=== PATIENT | female | born 1990 | race Caucasian/White ===

== ENCOUNTER 2023-09-14 19:50 | Outpatient (REF) | payer BC, SELFPAY | END 2023-09-14 19:51 | disposition home or self-care (01) | LOC: LAB 19:50 | PROVIDERS: Visit Provider Physician Assistant | DX: Z01.419 Encounter for gynecological examination (general) (routine) without abnormal findings (principal) | CPT/HCPCS: 87624; G0145 ==

== ENCOUNTER 2023-10-29 15:14 | Outpatient (REF) | payer BC, SELFPAY ==
--- OUTSIDE RECORDS SUMMARY | 2023-11-02 15:23 | XMS_ITS | CCD ---
Author Organization [facility] Care Team Providers Care Winchman/Crane Operator Name Role Phone Unavailable Primary Care Provider Unavailabl e CHEPE, DR HAWKINS Primary Care Unavailable GEOVANNI, DR EH White Attending Unavailable WEST, DR EH White Admitting Unavailable WEST, DR EH White Consulting Unavailable WEST, DR EH White Attending Unavailable MISC, DR HAWKINS Primary Care Unavailable WEST, DR EH White Admitting Unavailable WEST, DR EH White Consulting Unavailable FIDELIA HOBSON Consulting Unavailable FIDELIA HOBSON Attending Unavailable CHEPE, DR HAWKINS Primary Care Unavailable FIDELIA HOBSON Admitting Unavailable ARIELLE COOPER Attending Unavailable MILI HERNANDZE Attending Unavailable MILI HERNANDEZ Attending Unavailable MILI HERNANDEZ Attending Unavailable NEAL Ramon Primary Care Provider Fidelia Hobson Attending Provider WILMER WAY Attending Unavailable RIO MEI Attending Unavailable WILMER WAY Attending Unavailable WILMER WAY Attending Unavailable FIDELIA HOBSON Attending Unavailable Fidelia Hobson Admitting Unavailable Fidelia Hobson Attending Unavailable Bella Ramon Primary Care Unavailable Allergies Allergy Classification Reported Allergen(s) Allergy Type Date of Onset Reaction(s) Facility penicillAMINE (1 source) penicillAMINE Drug Allergy 10-23-2020 [facility] Penicillins (antibiotic) (1 source) Amoxicillin Drug Allergy 10-23-2020 [facility] (6 sources) Penicillins; Translations: [PENICILLINS] Drug Allergy 07-31-2022 [facility] (5 sources) Amoxicillin; Translations: [AMOXICILLIN] Drug Allergy 08-04-2022 [facility] (1 source) Amoxicillin Drug Allergy 10-23-2020 [facility] (1 source) penicillAMINE Drug Allergy 10-23-2020 [facility] Medications Current Medications Medication Drug Class(es) Dates Sig (Normalized) Sig (Original) acetaminophen 325 mg / oxyCODONE hydrochloride 5 mg oral tablet (1 source) Opioid Agonist Start: 07-31-2022 End: 08-03-2022 take 1 tablet by mouth every six hours as needed for pain oxyCODONE-acetamin ophen (PERCOCET) 5-325 mg tablet Indications: Closed nondisplaced fracture of fifth metatarsal bone of left foot, initial encounter Take 1 tablet by mouth every 6 hours as needed for pain for up to 3 days. 12 tablet 0 07/31/2022 08/03/2022 Active Comment on above: Take 1 tablet by andrew th every 6 hours as needed for pain for up to 3 days. Completed/Discontinued Medications Medication Drug Class(es) Dates Sig (Normalized) Sig (Original) Ethinyl Estradiol / Ferrous fumarate / Norethindrone (4 sources) Estrogen Start: 07-21-2022 take 1 tablet by mouth once daily LO LOESTRIN FE 1 mg-10 mcg (24)/10 mcg (2) TAKE 1 TABLET BY MOUTH EVERY DAY FOR 28 DAYS 0 07/21/2022 Active Comment on above: TAKE 1 TABLET BY ANDREW TH EVERY DAY FOR 28 DAYS Problems Problem Classification Problem Date Documented Date Episodic/Chronic Fracture of lower limb (5 sources) Closed fracture of fifth metatarsal bone; Translations: [Nondisplaced fracture of fifth metatarsal bone, left foot, initial encounter for closed fracture] Onset: 07-31-2022 Episodic Immunizations and screening for infectious disease (1 source) Encounter for screening for human papillomavirus (HPV); Translations: [ENC SCREENING HUMAN PAPILLOMAVIRUS] Onset: 07-07-2022 Episodic Other screening for suspected conditions (not mental disorders or infectious disease) (4 sources) Encounter for screening for malignant neoplasm of cervix; Translations: [ENC SCREENING MALIG NEOPLASM CERV] Onset: 07-03-2022 Episodic Results Test Name Value Interpretation Reference Range Facility [facility] 10-27-2022 CNOV Office Visit (AGHWG1 ) JAYASHREECELE ([id number]) 1990 F [place] Date Time Provider Department 10/27/22 11:15 AM MILI HERNANDEZ [id number] During your visit today, we recorded the following information about you: Respiration Weight Height 18/minute 74.8 kg 1.651 m Mili Hernandez DPM 11/25/2022 4:23 PM Signed PODIATRY OFFICE NOTE Chief Complaint: Left foot 5th metatarsal fracture HPI: This 32 year old female with PMH indicated below presents for follow up of left 5th metatarsal fracture. DOI: 07/31/22. Since last visit, she has been weightbearing as tolerated in a regular shoes. States she has transitioned out of the lace up and has been performing more activity. States she is doing well and states has some very minimal pain. Denies nausea, vomiting, fever, chills, shortness of breath, calf pain, or chest pain. Denies any other pedal complaints at this time. PCP: No primary care provider on file.: History reviewed. No pertinent past medical history.: Current Outpatient Medications Medication Sig LO LOESTRIN FE 1 mg-10 mcg (24)/10 mcg (2) TAKE 1 TABLET BY MOUTH EVERY DAY FOR 28 DAYS No current facility-administered medications for this visit. : ALLERGIES Allergen Reactions Amoxicillin Rash Penicillins Rash : PAST SURGICAL HISTORY Procedure Laterality Date TONSILLECTOMY AND ADENOIDECTOMY History reviewed. No pertinent family history.: Social History Tobacco Use Smoking status: Never Smokeless tobacco: Never Substance Use Topics Alcohol use: Yes Comment: social Drug use: Never Physical Exam: Patient is alert and oriented x 3 in NAD. Patient is a 32 year old female who appears well developed, well nourished and with good attention to hygiene and body habitus. Resp 18 Ht 165.1 cm (5' 5 ) Wt 74.8 kg (165 lb) BMI 27.46 kg/m? Vascular: DP and PT pulses are palpable. CFT less than 3 seconds to all digits bilateral. Skin temperature is warm to warm from proximal to distal bilateral. Hair growth is noted. Minimal edema noted to the left lateral midfoot. No varicosities noted. Neuro: Light touch intact bilateral. Derm: Skin texture and turgor within normal limits. Toenails normal in appearance. Webspaces 1-4 clean, dry, intact b/l. No rashes, subcutaneous nodules, or open lesions noted. No hyperkeratotic tissue. No ecchymosis or erythema. Musculoskeletal/Orthop aedic: General foot morphology: Rectus medial longitudinal arch +5/5 muscle strength Dorsiflexion, Plantarflexion, Inversion, Eversion bilateral. Pain with active eversion on the left. Ankle joint ROM is full B/L. Minimal tenderness to the 5th metatarsal base. No tenderness to the ankle joint. No tenderness along the peroneal tendons. No tenderness to the tarsometatarsal joint complex. No tenderness to the 5th toe. No tenderness to the ATFL. Radiographs: 3 views of the left foot were taken and reviewed today. Impression: Avulsion fracture to the fifth metatarsal styloid. No change in position. Increased callus formation. ASSESSMENT: This 32 year old female patient presents today with left 5th metatarsal non-displaced avulsion fracture. Progressing well with conservative care. Plan: A problem focused history and physical examination were preformed. The patient was educated on clinical and radiographic findings, diagnosis and treatment plans. Patient state that she understands all that has been explained and all questions were answered to her apparent satisfaction. - Shoe gear and activities to tolerance. - Educated on signs and symptoms to watch for and instructed to call if any should arise. Follow up as needed Nestor Vega DPM, PGY-3 I personally saw and examined the patient. I reviewed the resident's note. I agree with the resident's assessment and plan unless otherwise noted. Mili Hernandez DPM Allergies As of Date: 10/27/2022 Noted Allergy Reaction AMOXICILLIN 08/04/2022 2 - Rash PENICILLINS 07/31/2022 2 - Rash Date Reviewed: 10/27/2022 Reviewed by: Mili Hernandez DPM - Fully Assessed Reason for Visit: Follow Up [171] Fracture [4131] Primary Visit Diagnosis:Closed nondisplaced fracture of fifth metatarsal bone of left foot with routine healing, subsequent encounter [S92.355D] Order(s):XR FOOT GENERAL 3V AP/LAT/OBL LEFT [[id number]] Order #: [id number] Prescriptions as of 11/25/2022 - LO LOESTRIN FE 1 mg-10 mcg (24)/10 mcg (2) TAKE 1 TABLET BY MOUTH EVERY DAY FOR 28 DAYS Problem List As Of Date: 10/27/2022 (None) Disposition: Return if symptoms worsen or fail to improve. Follow-up and Disposition History for Encounter Date Provider Department Center 10/27/2022 [id number] HERNANDEZ AGHWG1 [facility] Encounter Status:Closed by MILI HERNANDEZ on 11/25/22 [facility] CNOVon 09-10-2022 CNOV Office Visit (AGPOB1 ) CELE BLANC ([id number]) 1990 F [place] Date Time Provider Department 09/10/22 8:15 AM MILI HERNANDEZ [id number] During your visit today, we recorded the following information about you: Respiration Weight Height 16/minute 74.8 kg 1.651 m Bernardino Huang 09/10/2022 8:49 AM Signed REVIEW OF SYSTEMS: GENERAL: Well developed, well nourished. No acute distress PAIN: Negative for pain, history of chronic pain or current treatment for chronic pain conditions CARDIOVASCULAR: Negative for chest pain, leg swelling and palpations. MSK: Negative for joint swelling SKIN: Negative for lesions, rash, itching, metal sensitivity NEURO: Negative for seizure, trauma, numbness/tingling of extremities. ENDOCRINE: Negative for diabetic associated symptoms HEMATOLOGY: Negative for excessive bleeding, clots, bleeding disorders. Mili Hernandez DPM 09/10/2022 8:49 AM Signed PODIATRY OFFICE NOTE Chief Complaint: Left foot 5th metatarsal fracture HPI: This 32 year old female with PMH indicated below presents for follow up of left 5th metatarsal fracture. DOI: 07/31/22. Since last visit, she has been weightbearing as tolerated in a boot. Admit to walking out of the boot at home. States she is doing well and denies pain when in the boot. Denies nausea, vomiting, fever, chills, shortness of breath, calf pain, or chest pain. Denies any other pedal complaints at this time. PCP: No primary care provider on file.: History reviewed. No pertinent past medical history.: Current Outpatient Medications Medication Sig LO LOESTRIN FE 1 mg-10 mcg (24)/10 mcg (2) TAKE 1 TABLET BY MOUTH EVERY DAY FOR 28 DAYS No current facility-administered medications for this visit. : ALLERGIES Allergen Reactions Amoxicillin Rash Penicillins Rash : PAST SURGICAL HISTORY Procedure Laterality Date TONSILLECTOMY AND ADENOIDECTOMY History reviewed. No pertinent family history.: Social History Tobacco Use Smoking status: Never Smokeless tobacco: Never Substance Use Topics Alcohol use: Yes Comment: social Drug use: Never Physical Exam: Patient is alert and oriented x 3 in NAD. Patient is a 32 year old female who appears well developed, well nourished and with good attention to hygiene and body habitus. Resp 16 Ht 165.1 cm (5' 5 ) Wt 74.8 kg (165 lb) BMI 27.46 kg/m? Vascular: DP and PT pulses are palpable. CFT less than 3 seconds to all digits bilateral. Skin temperature is warm to warm from proximal to distal bilateral. Hair growth is noted. Mild edema noted to the left llateral midfoot. No varicosities noted. Neuro: Light touch intact bilateral. Derm: Skin texture and turgor within normal limits. Toenails normal in appearance. Webspaces 1-4 clean, dry, intact b/l. No rashes, subcutaneous nodules, or open lesions noted. No hyperkeratotic tissue. Ecchymosis resolved. Musculoskeletal/Orthop aedic: General foot morphology: Rectus medial longitudinal arch +5/5 muscle strength Dorsiflexion, Plantarflexion, Inversion, Eversion bilateral. Pain with active eversion on the left. Ankle joint ROM is full B/L. Focal tenderness to the 5th metatarsal base. No tenderness to the ankle joint. No tenderness along the peroneal tendons. No tenderness to the tarsometatarsal joint complex. No tenderness to the 5th toe. No tenderness to the ATFL. Radiographs: 3 views of the left foot were taken and reviewed today. Impression: Avulsion fracture to the fifth metatarsal styloid. No change in position. Interval callus formation. ASSESSMENT: This 32 year old female patient presents today with left 5th metatarsal non-displaced avulsion fracture. Progressing well with conservative care. Plan: A problem focused history and physical examination were preformed. The patient was educated on clinical and radiographic findings, diagnosis and treatment plans. Patient state that she understands all that has been explained and all questions were answered to her apparent satisfaction. - Can transition out of the boot into a lace up ankle brace and supportive tennis shoes. - Lace up ankle brace fit and dispensed today. - Begin home therapy. Instructions and theraband dispensed. - Educated on signs and symptoms to watch for and instructed to call if any should arise. Follow up in 6 weeks with repeat x-rays. Mili Hernandez DPM Allergies As of Date: 09/10/2022 Noted Allergy Reaction AMOXICILLIN 08/04/2022 2 - Rash PENICILLINS 07/31/2022 2 - Rash Date Reviewed: 09/10/2022 Reviewed by: Mili Hernandez DPM - Fully Assessed Reason for Visit: Follow Up [171] Primary Visit Diagnosis:Closed nondisplaced fracture of fifth metatarsal bone of left foot, initial encounter [S92.355A] Order(s):XR FOOT GENERAL 3V AP/LAT/OBL LEFT [[id number]] Order #: [id number] Prescriptions as of 09/10/2022 - LO LOESTRIN FE 1 mg-10 mcg (more content not included)... Normal [facility] 09-08-2022 [facility] Telephone (AGPOB1) CELE BLANC ([id number]) 1990 F [place] Date Time Provider Department 09/08/22 MILI HERNANDEZ During your visit today, we recorded the following information about you: Tangela Carter [address] [facility] 09/08/2022 12:38 PM Signed ----- Message from Bel Daly sent at 09/08/2022 8:17 AM EDT ----- Regarding: Orthopedics/Figas/Left Foot Fracture appt Subject Line Format: Orthopedics / [Provider Name or Open AND Body Part ] / [Issue] Patient has been identified by name and Date of (Y/N): Y Patient: Cele Blanc Date of : 1990 Previous Provider Seen: [place] Body Part(s) Identified: Left Foot Diagnosis/Reason For Visit: Fracture Reason for the call/escalation: Pt wants to know if her appt can be moved to this week since she is off. Please call. If reason for call/escalation is discharge from ED/ER or Hospital, which facility was the patient seen at: na Was an appointment scheduled (Y/N): na Person calling if other than patient: pt Return call to if other than patient: pt Best contact number: [phone] Thank you, Bel Daly September 08, 2022 8:17 AM Tangela Deutsch 09/08/2022 12:38 PM Signed Spoke with patient and appointment was made Tangela Deutsch Allergies As of Date: 09/08/2022 Noted Allergy Reaction AMOXICILLIN 08/04/2022 2 - Rash PENICILLINS 07/31/2022 2 - Rash Date Reviewed: 08/04/2022 Reviewed by: Mili Hernandez DPM - Fully Assessed Reason for Visit: Appointment [186] Prescriptions as of 09/08/2022 - LO LOESTRIN FE 1 mg-10 mcg (24)/10 mcg (2) TAKE 1 TABLET BY MOUTH EVERY DAY FOR 28 DAYS Problem List As Of Date: 09/08/2022 (None) Encounter Status:Closed by TANGELA HULL on 09/08/22 [facility] CNOVon 08-04-2022 CNOV Office Visit (AGHWG1 ) CELE BLANC ([id number]) 1990 F [place] Date Time Provider Department 08/04/22 3:00 PM MILI HERNANDEZ [id number] During your visit today, we recorded the following information about you: Respiration Weight Height 18/minute 74.8 kg 1.664 m Arelis Luna MA 08/04/2022 5:46 PM Signed REVIEW OF SYSTEMS: GENERAL: Well developed, well nourished. No acute distress PAIN: Pain 7/10 CARDIOVASCULAR: Negative for chest pain, leg swelling and palpations. MSK: Negative for joint swelling SKIN: Negative for lesions, rash, itching, metal sensitivity NEURO: Negative for seizure, trauma, numbness/tingling of extremities. ENDOCRINE: Negative for diabetic associated symptoms HEMATOLOGY: Negative for excessive bleeding, clots, bleeding disorders. PAPO Ruiz DPM 08/04/2022 5:46 PM Signed PODIATRY OFFICE NOTE Chief Complaint: Left foot 5th metatarsal fracture HPI: This 32 year old female with PMH indicated below presents complaining of left 5th metatarsal fracture. Patient states that last she fell and injured her left foot. Presented to the ED where radiographs were taken which showed evidence of a non-displaced avulsion fracture of the left 5th metatarsal. She was given a CAM boot and states that she has remained minimally weight bearing to the left foot since the injury with crutches. Denies any pain at this time with rest but does have some discomfort with direct pressure. Denies any constitutional symptoms. Denies any additional pedal complaints. PCP: No primary care provider on file.: History reviewed. No pertinent past medical history.: Current Outpatient Medications Medication Sig LO LOESTRIN FE 1 mg-10 mcg (24)/10 mcg (2) TAKE 1 TABLET BY MOUTH EVERY DAY FOR 28 DAYS No current facility-administered medications for this visit. : ALLERGIES Allergen Reactions Amoxicillin Rash Penicillins Rash : PAST SURGICAL HISTORY Procedure Laterality Date TONSILLECTOMY AND ADENOIDECTOMY History reviewed. No pertinent family history.: Social History Tobacco Use Smoking status: Never Smokeless tobacco: Never Substance Use Topics Alcohol use: Yes Comment: social Drug use: Never Physical Exam: Patient is alert and oriented x 3 in NAD. Patient is a 32 year old female who appears well developed, well nourished and with good attention to hygiene and body habitus. Resp 18 Ht 166.4 cm (5' 5.5 ) Wt 74.8 kg (165 lb) BMI 27.04 kg/m? Vascular: DP and PT pulses are palpable. CFT less than 3 seconds to all digits bilateral. Skin temperature is warm to warm from proximal to distal bilateral. Hair growth is noted. Edema noted to the left foot. No varicosities noted. Neuro: Light touch intact bilateral. Derm: Skin texture and turgor within normal limits. Toenails normal in appearance. Webspaces 1-4 clean, dry, intact b/l. No rashes, subcutaneous nodules, or open lesions noted. No hyperkeratotic tissue. Ecchymosis overlying the dorsolateral midfoot. Musculoskeletal/Orthop aedic: General foot morphology: Rectus medial longitudinal arch +5/5 muscle strength Dorsiflexion, Plantarflexion, Inversion, Eversion bilateral Ankle joint ROM is full B/L. Focal tenderness to the 5th metatarsal base. No tenderness to the ankle joint. No tenderness along the peroneal tendons. No tenderness to the tarsometatarsal joint complex. No tenderness to the 5th toe. No tenderness to the ATFL. ASSESSMENT: This 32 year old female patient presents today with left 5th metatarsal non-displaced avulsion fracture Plan: A comprehensive history and physical examination were preformed. The patient was educated on clinical and radiographic findings, diagnosis and treatment plans. Patient state that she understands all that has been explained and all questions were answered to her apparent satisfaction. Etiology and treatment options were discussed with the patient. - Continue with the CAM boot. Patient okay to WBAT in the boot. - Remove the boot at rest to perform ankle ROM exercises - Advised patient on the risk of developing blood clots while immobilized. Patient advised to call immediately or go to the ED if she is to develop worsening calf pain, chest pain or SOB while in the boot. - Educated on signs and symptoms to watch for and instructed to call if any should arise. Follow up in 4-6 weeks with repeat x-rays. William Galvin DPM PGY3 I personally saw and examined the patient. I reviewed the resident's note. I agree with the resident's assessment and plan unless otherwise noted. Mili Hernandez DPM Allergies As of Date: 08/04/2022 Noted Allergy Reaction AMOXICILLIN 08/04/2022 2 - Rash PENICILLINS 07/31/2022 2 - Rash Date Reviewed: 08/04/2022 Reviewed by: Mili Hernandez DPM - Fully Assessed Reason for Visit: New [[id number]] Primary Visit Diagnosis (more content not included)... [facility] ALLIED HEALTHon 07-31-2022 ALLIED HEALTH HNO ID: [id number] Author: RT Bee(R) Service: Radiology Author Type: Technologist Type: Allied Health Filed: 07/31/2022 8:43 AM Note Text: Radiology Service Progress Note PATIENT NAME: Cele Blanc DATE OF SERVICE: July 31, 2022 TIME: 8:37 AM PATIENT IDENTITY VERIFICATION COMPLETED USING TWO (2) IDENTIFIERS: Name and Date of confirmed by patient verbally and Name and Date of confirmed by identification band. FALL SCREENING: Has the patient had 2 falls in the last year or 1 fall with injury or currently using an Ambulatory Assistive Device (Walker, Cane, Wheelchair, Crutches, etc.)? Emergency Room Patient: Screened in ED PATIENT GENDER DATA: Female. status: : No status: NO. PATIENT RELEVANT IMPLANT DATA REVIEWED: Not Applicable RADIOLOGY DEPARTMENT: General X-ray: Exam(s) Completed: Lower Extremity X-Ray(s): Ankle, Left and Foot, Left PERIPHERAL IV DATA: Not applicable SIGNED BY: RT Bee(R) July 31, 2022 8:37 AM [facility] CNPNon 07-31-2022 CNPN Telephone (AGPOB1) CELE BLANC ([id number]) 1990 F [place] Date Time Provider Department 07/31/22 [facility] AGPOB1 During your visit today, we recorded the following information about you: Wendy Phillip 07/31/2022 1:11 PM Signed ----- Message from Bel Daly sent at 07/31/2022 10:24 AM EDT ----- Regarding: Orthopedics / Open Foot: Fracture Broken / Recent ED Visit Subject Line Format: Orthopedics / [Provider Name or Open AND Body Part ] / [Issue] Patient has been identified by name and Date of (Y/N): Y Patient: Cele Blanc Date of : 1990 Previous Provider Seen: NA Body Part(s) Identified: Left Foot Diagnosis/Reason For Visit: Fracture Reason for the call/escalation: ER F/U If reason for call/escalation is discharge from ED/ER or Hospital, which facility was the patient seen at: [facility] Was an appointment scheduled (Y/N): n Person calling if other than patient: pt Return call to if other than patient: pt Best contact number: [phone] Thank you, Bel Addy July 31, 2022 10:24 AM Wendy Phillip 07/31/2022 1:49 PM Signed Vinicio Awad MD You 12 minutes ago (1:34 PM) Foot and ankle follow-up with Dr. Norwood/Dr. Hernandez/Dr. Jose Thanks, NJD You Vinicio Awad MD 34 minutes ago (1:12 PM) CR This patient was seen in the ED today. You are campus receptionist. Would you like to see this patient? Nu Corrigan Please schedule with one of your providers. Thanks, Nu Carter Rosalie [facility] 08/01/2022 9:02 AM Signed Mili Hernandez DPM You 12 minutes ago (8:48 AM) Anytime next week or the following is fine You Mili Hernandez DPM 18 hours ago (2:37 PM) NM How soon should this be seen Wendy Phillip You 19 hours ago (1:49 PM) CR Please schedule with one of your providers. Thanks, Nu Carter [address] [facility] 08/01/2022 9:02 AM Signed Called and left message for patient to call the office back to schedule an appointment Tangela Carter [address] [facility] Allergies As of Date: 07/31/2022 Noted Allergy Reaction PENICILLINS 07/31/2022 2 - Rash Date Reviewed: 07/31/2022 Reviewed by: Tisha Lala RN - Fully Assessed Reason for Visit: Appointment [186] Prescriptions as of 08/01/2022 - oxyCODONE-acetaminophe n (PERCOCET) 5-325 mg tablet Take 1 tablet by mouth every 6 hours as needed for pain for up to 3 days. Problem List As Of Date: 07/31/2022 (None) Encounter Status:Closed by WENDY PHILLIP on 07/31/22 [facility] ED PROV NOTEon 07-31-2022 ED PROV NOTE HNO ID: [id number] Author: Arielle Cooper DO Service: Emergency Medicine Author Type: Physician Type: ED Provider Notes Filed: 08/27/2022 2:14 AM Note Text: ED Provider Note Patient Name: Cele Blanc : 1990 SERVICE DATE: 07/31/22 History Patient presents with: Ankle Injury: Pt c/o L ankle pain after she fell walking down 2 steps this morning due to steps gave away. + swelling and tenderness on palpation noted. 32-year-old female presenting with left ankle injury. States she was coming down the steps into her garage this morning. The steps gave way underneath her. She sustained an injury to her left foot and ankle. She did not strike her head or lose consciousness. No pain in the hip or knee. She has difficulty bearing weight or ambulating. She is able to range it some. No other injuries. No past medical history on file. No past surgical history on file. No family history on file. Social History Tobacco Use Smoking status: Not on file Smokeless tobacco: Not on file Substance and Sexual Activity Alcohol use: Not on file Drug use: Not on file Sexual activity: Not on file ALLERGIES Allergen Reactions Penicillins Rash Review of Systems Constitutional: Negative for chills, diaphoresis and fever. HENT: Negative. Negative for congestion, ear pain and nosebleeds. Eyes: Negative for photophobia, discharge and visual disturbance. Respiratory: Negative for cough, chest tightness and shortness of breath. Cardiovascular: Negative for chest pain and leg swelling. Gastrointestinal: Negative for abdominal pain, blood in stool, diarrhea, nausea and vomiting. Endocrine: Negative. Negative for cold intolerance and heat intolerance. Genitourinary: Negative for dysuria, flank pain, frequency and hematuria. Musculoskeletal: Negative for arthralgias. Left foot and ankle pain Skin: Negative for color change and rash. Neurological: Negative for dizziness, seizures, facial asymmetry, speech difficulty, weakness, numbness and headaches. Psychiatric/Behavioral : Negative. Negative for agitation, confusion, hallucinations and suicidal ideas. Physical Exam Vitals [07/31/22 0721] BP Pulse Temp Temp src Resp SpO2 Weight Height 118/63 (!) 92 37 ?C (98.6 ?F) -- 16 98 % 74.8 kg (165 lb) -- Physical Exam Constitutional: General: She is not in acute distress. Appearance: Normal appearance. She is well-developed and normal weight. She is not ill-appearing, toxic-appearing or diaphoretic. HENT: Head: Normocephalic and atraumatic. Mouth/Throat: Mouth: Mucous membranes are moist. Pharynx: Oropharynx is clear. Eyes: Extraocular Movements: Extraocular movements intact. Conjunctiva/sclera: Conjunctivae normal. Pupils: Pupils are equal, round, and reactive to light. Abdominal: General: Bowel sounds are normal. There is no distension. Palpations: Abdomen is soft. Tenderness: There is no abdominal tenderness. There is no guarding or rebound. Musculoskeletal: General: Tenderness (left lateral foot and lateral malleolus. no gross deformity) and signs of injury present. No swelling or deformity. Normal range of motion. Cervical back: Normal range of motion and neck supple. Right lower leg: No edema. Left lower leg: No edema. Lymphadenopathy: Cervical: No cervical adenopathy. Skin: General: Skin is warm and dry. Capillary Refill: Capillary refill takes less than 2 seconds. Coloration: Skin is not jaundiced or pale. Findings: No bruising, erythema or rash. Neurological: General: No focal deficit present. Mental Status: She is alert and oriented to person, place, and time. Mental status is at baseline. Cranial Nerves: No cranial nerve deficit. Sensory: No sensory deficit. Motor: No weakness. Coordination: Coordination normal. Gait: Gait normal. Deep Tendon Reflexes: Reflexes are normal and symmetric. Reflexes normal. Psychiatric: Behavior: Behavior normal. Diagnostic Testing ED Labs Ordered and Reviewed - No data to display Procedures ED Course / Clinical Impression Clinical Impressions as of 08/27/22 0212 Closed nondisplaced fracture of fifth metatarsal bone of left foot, initial encounter Patient seen and evaluated. Differential including fracture contusion dislocation all considered. X-ray shows nondisplaced fracture of the fifth metatarsal. Patient will be placed in a walking boot. Follow-up orthopedics. Return if needed for any worsening symptoms. MDM / Disposition / Plan MDM The patient was DISCHARGED: Counseled patient regarding radiology results AND suspected diagnosis AND need for follow-up. Discharged home with verbal and written instructions. They were instructed to return as needed for persistent or worsening symptoms or any new concerns. Condition at time of disposition: stable SIGNATURE: DO ISHMAEL Kulkarni JUSTIN J 08/27/22 0214 Normal [facility] XR ANKLE 3V AP/LAT/OBL LTon 07-31-2022 XR ANKLE 3V AP/LAT/OBL LT * * *Final Report* * * DATE OF EXAM: Jul 31 2022 8:44AM [id number] - XR ANKLE 3V AP/LAT/OBL LT / PROCEDURE REASON: Ankle pain, no prior imaging * * * * Physician Interpretation * * * * EXAM TITLE: XR ANKLE 3V AP/LAT/OBL LT, XR FOOT 3V AP/LAT/OBL LT DATE: 07/31/2022 8:51 AM INDICATION: Left foot and left ankle pain secondary to a fall COMPARISON: None. FINDINGS: Nondisplaced transverse fracture at the base of the fifth metatarsal. No additional fracture or dislocation. Accessory ossicle is noted dorsal to the subtalar joint. No acute soft tissue abnormality. IMPRESSION: Fifth metatarsal fracture. Seismograph Observer: PSCB Transcribe Date/Time: Jul 31 2022 8:51A Dictated by : KOMAL CUELLAR MD This examination was interpreted and the report reviewed and electronically signed by: KOMAL CUELLAR MD on Jul 31 2022 8:54AM EST [id number] Normal [facility] XR FOOT 3V AP/LAT/OBL LTon 0 07-31-2022 XR FOOT 3V AP/LAT/OBL LT * * *Final Report* * * DATE OF EXAM: Jul 31 2022 8:44AM [id number] - XR FOOT 3V AP/LAT/OBL LT / PROCEDURE REASON: Foot trauma, no prior imaging (Age >= 6y) * * * * Physician Interpretation * * * * EXAM TITLE: XR ANKLE 3V AP/LAT/OBL LT, XR FOOT 3V AP/LAT/OBL LT DATE: 07/31/2022 8:51 AM INDICATION: Left foot and left ankle pain secondary to a fall COMPARISON: None. FINDINGS: Nondisplaced transverse fracture at the base of the fifth metatarsal. No additional fracture or dislocation. Accessory ossicle is noted dorsal to the subtalar joint. No acute soft tissue abnormality. IMPRESSION: Fifth metatarsal fracture. Seismograph Observer: PSCB Transcribe Date/Time: Jul 31 2022 8:51A Dictated by : KOMAL CUELLAR MD This examination was interpreted and the report reviewed and electronically signed by: KOMAL CUELLAR MD on Jul 31 2022 8:54AM EST [id number] Normal [facility] PAP ACOG PANEL 2: 30 to 65on 07-11-2022 . . Normal [facility] Comment on above: Result Comment: Perf ormed at: WB Performed By: #### [id number] #### [facility] [address] [address] [address] Morenita Hood Age Gdln ACOG Testing 30-65 Normal [facility] Comment on above: Performed By: #### [id number] #### [facility] [address] [address] [address] Morenita Hood DIAGNOSIS: Comment Abnormal [facility] Comment on above: Result Comment: EPIT HELIAL CELL ABNORMALITY. LOW GRADE SQUAMOUS INTRAEPITHELIAL LESION (LSIL). Performed at: WB Performed By: #### [id number] #### [facility] [address] [address] [address] Morenita Hood Electronically signed by: Comment Normal [facility] Comment on above: Result Comment: Maeve Chavez MD, Pathologist Performed at: WB Performed By: #### [id number] #### [facility] [address] [address] [address] Morenita Hood HPV Aptima Positive Abnormal Negative [facility] Comment on above: Result Comment: This nucleic acid amplification test detects fourteen high-risk HPV types (16,18,31,33,35,39,45,51,52,56,58,59,66,68) without differentiation. Performed at: =G Performed By: #### [id number] #### [facility] [address] [place] [address] Dr. Morenita Hood HPV Genotype Reflex Comment Normal [facility] Comment on above: Result Comment: Crit eria not met, HPV Genotype not performed. Performed at: WB Performed By: #### [id number] #### [facility] [address] [address] [address] Morenita Hood Methodology: Comment Normal [facility] Comment on above: Result Comment: This liquid based ThinPrep(R) pap test was screened with the use of an image guided system. Performed at: WB Performed By: #### [id number] #### [facility] [address] [place] [address] Dr. Morenita Hood Note: Comment Normal [facility] Comment on above: Result Comment: The Pap smear is a screening test designed to aid in the detection of premalignant and malignant conditions of the uterine cervix. It is not a diagnostic procedure and should not be used as the sole means of detecting cervical cancer. Both false-positive and false-negative reports do occur. . Performed at: WB Performed By: #### [id number] #### [facility] [address] [place] [address] Dr. Morenita Hood Pathologist Provided ICD10 Comment Normal [facility] Comment on above: Result Comment: [id number] Performed at: WB Performed By: #### [id number] #### [facility] [address] [place] [address] Dr. Morenita Hood Performed by: Comment Normal [facility] Comment on above: Result Comment: Lorraine Bravo Polisher Sand (ASCP) Performed at: WB Performed By: #### [id number] #### [facility] [address] [place] [address] Dr. Morenita Hood Specimen adequacy: Comment Normal [place] Comment on above: Result Comment: Sati sfactory for evaluation. Endocervical and/or squamous metaplastic cells (endocervical component) are present. Performed at: WB Performed By: #### [id number] #### [facility] [address] [place] [address] Dr. Morenita Hood No Panel Information [facility] Vital Signs Date Time Vital Sign Value Performing Clinician Leno garza 10-27-2022 10:55-0400 Body height 165.1 cm Mili Figas DPM Work Phone: [facility] 10-27-2022 10:55-0400 Body weight 74.84 kg Mili Figas DPM Work Phone: [facility] 10-27-2022 10:55-0400 Respiratory rate 18 /min Mili Figas DPM Work Phone: [facility] 09-10-2022 08:10-0400 Body height 165.1 cm Mili Figas DPM Work Phone: [facility] 09-10-2022 08:10-0400 Body weight 74.84 kg Mili Figas DPM Work Phone: [facility] 09-10-2022 08:10-0400 Respiratory rate 16 /min Mili Figas DPM Work Phone: [facility] 08-04-2022 14:46-0400 Body height 166.4 cm Mili Figas DPM Work Phone: [facility] 08-04-2022 14:46-0400 Body weight 74.84 kg Mlii Figas DPM Work Phone: [facility] 08-04-2022 14:46-0400 Respiratory rate 18 /min Mili Figas DPM Work Phone: [facility] Encounters Encounter Date Encounter Type Care Provider Facility Start: 10-30-2023 End: 10-30-2023 ambulatory NEAL Ramon Work Phone: [facility] Work Phone: Start: 10-30-2023 End: 10-30-2023 Departed Referred NEAL Ramon Work Phone: [facility] Start: 10-29-2023 End: 10-29-2023 ambulatory FIDELIA GANDHIO Not Available Start: 10-07-2023 End: 10-07-2023 ambulatory WILMER R LAUSE Not Available Start: 09-16-2023 End: 09-16-2023 ambulatory WILMER R LAUSE Not Available Start: 09-14-2023 End: 09-14-2023 ambulatory RIO MEI Not Available Start: 08-27-2023 End: 08-27-2023 ambulatory WILMER R LAUSE Not Available Start: 10-27-2022 End: 10-27-2022 ambulatory MILI HERNANDEZ Facility:[facility] Start: 10-27-2022 End: 10-27-2022 Patient encounter procedure Mili Hernandez DPM Work Phone: [employer] Comment on above: Closed nondisplaced fracture of fifth metatarsal bone of left foot with routine healing, subsequent encounter (Primary Dx) Start: 09-10-2022 End: 09-10-2022 ambulatory MILI HERNANDEZ Facility:[facility] Start: 09-10-2022 End: 09-10-2022 Patient encounter procedure Mili Hernandez DPM [facility] Phone: [facility] Comment on above: Closed nondisplaced fracture of fifth metatarsal bone of left foot, initial encounter (Primary Dx) Start: 09-08-2022 Telephone encounter Mili F cain DPM Work Phone: [facility] Comment on above: Appointment Start: 08-04-2022 End: 08-04-2022 ambulatory MILI HERNANDEZ Facility:[facility] Start: 08-04-2022 End: 08-04-2022 Patient encounter procedure Mili Hernandez DPM Work Phone: [employer] Comment on above: Closed nondisplaced fracture of fifth metatarsal bone of left foot, initial encounter (Primary Dx) Start: 07-31-2022 Telephone encounter [facility] Work Phone: [facility] Comment on above: Appointment Start: 07-31-2022 End: 07-31-2022 Emergency department patient visit ARIELLE COOPER Facility:[facility] Start: 07-03-2022 End: 07-03-2022 ambulatory FIDELIA HOBSON Facility:[facility] Start: 07-03-[address] EH Weston y:[facility] Start: 11-26-2021 End: 03-07-[address] DOCTOR MO Facility:[facility] Procedures Date Procedure Procedure Detail Performing Clinician Start: 10-27-2022 Radex foot complete minimum 3 views Mili Figas DPM Work Phone: Start: 09-10-2022 Radex foot complete minimum 3 views Mili Figas DPM Work Phone: Plan of Treatment Date Care Activity Detail Author Start: 01-09-2023 Influenza vaccination [facility] Start: 05-11-2022 DEPRESSION ASSESSMENT DEPRESSION ASS ESSMENT [facility] Start: 01-09-2022 Influenza vaccination INFLUENZA (#1) [facility] Start: 2019 HPV TESTING HPV TESTING [facility] Start: 2010 PAP TESTING PAP TESTING [facility] Start: 2008 Urine microalbumin profile DTAP,TDAP ,TD (1 - Tdap) [facility] Start: 2007 HEPATITIS C SCREENING HEPATITIS C SC SVEN [facility] Start: 2007 HIV SCREENING HIV SCREENING [facility] Start: 1989 COVID-19 VACCINE (#1) COVID-19 VACCI NE (#1) [facility] Start: 1989 HEPATITIS B (1 of 3 - 3-dose series) HEPATITIS B (1 of 3 - 3-dose series) [facility] Payers Date Payer Category Payer Unknown [employer] PPO OOS [id number] 2021-Present [phone] [address] [place] [address] PPO [id number] 1989 Unknown [id number] 1989 Unknown [id number] 1989 Unknown [id number] 1989 Unknown [id number] 1989 Unknown [id number] 1989 Unknown [id number] 1989 Unknown [id number] 1989 Unknown [id number] 1959 Self-pay 1960 Unknown [id number] Unknown [id number] Social History Date Type Detail Facility Tobacco smoking status [facility] Tobacco smoking consumption unknown [facility] Start: 1989 Sex Assigned At Not on file [facility] Start: 10-16-2017 End: 08-04-2022 Tobacco smoking status [facility] Never smoked tobacco [facility] Start: 08-04-2022 Tobacco use and exposure Smokeless tobacco non-user [facility] Start: 08-04-2022 End: 10-27-2022 Alcohol intake Current drinker of alcohol (finding) [facility] Start: 08-04-2022 Alcohol Comment social [facility] Start: 10-27-2022 History of Social function [facility] Start: 10-27-2022 Tobacco use panel [facility] Start: 1989 Sex Assigned At Female F [facility] Clinical Notes 07-31-2022 to 10-27-2022 Mili Hernandez DPM - 10/27/2022 11:14 AM Corrina Hernandez DPM - 09/10/2022 8:29 AM Bernardino Chao - 09/10/2022 8:08 AM Corrina Hernandez DPM - 08/04/2022 3:11 PM EDT Note Date & Type Note Facility 10-27-2022 Note HNO ID: [id number] Author: Mili Hernandez DPM Service: ? Author Type: Physician Type: Progress Notes Filed: 11/25/2022 4:23 PM Note Text: PODIATRY OFFICE NOTE Chief Complaint: Left foot 5th metatarsal fracture HPI: This 32 year old female with PMH indicated below presents for follow up of left 5th metatarsal fracture. DOI: 07/31/22. Since last visit, she has been weightbearing as tolerated in a regular shoes. States she has transitioned out of the lace up and has been performing more activity. States she is doing well and states has some very minimal pain. Denies nausea, vomiting, fever, chills, shortness of breath, calf pain, or chest pain. Denies any other pedal complaints at this time. PCP: No primary care provider on file.: History reviewed. No pertinent past medical history.: Current Outpatient Medications Medication Sig LO LOESTRIN FE 1 mg-10 mcg (24)/10 mcg (2) TAKE 1 TABLET BY MOUTH EVERY DAY FOR 28 DAYS No current facility-administered medications for this visit. : ALLERGIES Allergen Reactions Amoxicillin Rash Penicillins Rash : PAST SURGICAL HISTORY Procedure Laterality Date TONSILLECTOMY AND ADENOIDECTOMY History reviewed. No pertinent family history.: Social History Tobacco Use Smoking status: Never Smokeless tobacco: Never Substance Use Topics Alcohol use: Yes Comment: social Drug use: Never Physical Exam: Patient is alert and oriented x 3 in NAD. Patient is a 32 year old female who appears well developed, well nourished and with good attention to hygiene and body habitus. Resp 18 Ht 165.1 cm (5' 5 ) Wt 74.8 kg (165 lb) BMI 27.46 kg/m? Vascular: DP and PT pulses are palpable. CFT less than 3 seconds to all digits bilateral. Skin temperature is warm to warm from proximal to distal bilateral. Hair growth is noted. Minimal edema noted to the left lateral midfoot. No varicosities noted. Neuro: Light touch intact bilateral. Derm: Skin texture and turgor within normal limits. Toenails normal in appearance. Webspaces 1-4 clean, dry, intact b/l. No rashes, subcutaneous nodules, or open lesions noted. No hyperkeratotic tissue. No ecchymosis or erythema. Musculoskeletal/Orthopaedic: General foot morphology: Rectus medial longitudinal arch +5/5 muscle strength Dorsiflexion, Plantarflexion, Inversion, Eversion bilateral. Pain with active eversion on the left. Ankle joint ROM is full B/L. Minimal tenderness to the 5th metatarsal base. No tenderness to the ankle joint. No tenderness along the peroneal tendons. No tenderness to the tarsometatarsal joint complex. No tenderness to the 5th toe. No tenderness to the ATFL. Radiographs: 3 views of the left foot were taken and reviewed today. Impression: Avulsion fracture to the fifth metatarsal styloid. No change in position. Increased callus formation. ASSESSMENT: This 32 year old female patient presents today with left 5th metatarsal non-displaced avulsion fracture. Progressing well with conservative care. Plan: A problem focused history and physical examination were preformed. The patient was educated on clinical and radiographic findings, diagnosis and treatment plans. Patient state that she understands all that has been explained and all questions were answered to her apparent satisfaction. - Shoe gear and activities to tolerance. - Educated on signs and symptoms to watch for and instructed to call if any should arise. Follow up as needed Nestor BONDM, PGY-3 I personally saw and examined the patient. I reviewed the resident's note. I agree with the resident's assessment and plan unless otherwise noted. Mili Hernandez DPM [facility] 10-27-2022 History of Presen t illness Narrative Images from the original note were not included. PODIATRY OFFICE NOTE Chief Complaint: Left foot 5th metatarsal fracture HPI: This 32 year old female with PMH indicated below presents for follow up of left 5th metatarsal fracture. DOI: 07/31/22. Since last visit, she has been weightbearing as tolerated in a regular shoes. States she has transitioned out of the lace up and has been performing more activity. States she is doing well and states has some very minimal pain. Denies nausea, vomiting, fever, chills, shortness of breath, calf pain, or chest pain. Denies any other pedal complaints at this time. PCP: No primary care provider on file.: History reviewed. No pertinent past medical history.: Current Outpatient Medications Medication Sig LO LOESTRIN FE 1 mg-10 mcg (24)/10 mcg (2) TAKE 1 TABLET BY MOUTH EVERY DAY FOR 28 DAYS No current facility-administered medications for this visit. : ALLERGIES Allergen Reactions Amoxicillin Rash Penicillins Rash : PAST SURGICAL HISTORY Procedure Laterality Date TONSILLECTOMY & ADENOIDECTOMY <AGE 11 History reviewed. No pertinent family history.: Social History Tobacco Use Smoking status: Never Smokeless tobacco: Never Substance Use Topics Alcohol use: Yes Comment: social Drug use: Never Physical Exam: Patient is alert and oriented x 3 in NAD. Patient is a 32 year old female who appears well developed, well nourished and with good attention to hygiene and body habitus. Resp 18 Ht 165.1 cm (5' 5 ) Wt 74.8 kg (165 lb) BMI 27.46 kg/m Vascular: DP and PT pulses are palpable. CFT less than 3 seconds to all digits bilateral. Skin temperature is warm to warm from proximal to distal bilateral. Hair growth is noted. Minimal edema noted to the left lateral midfoot. No varicosities noted. Neuro: Light touch intact bilateral. Derm: Skin texture and turgor within normal limits. Toenails normal in appearance. Webspaces 1-4 clean, dry, intact b/l. No rashes, subcutaneous nodules, or open lesions noted. No hyperkeratotic tissue. No ecchymosis or erythema. Musculoskeletal/Orthopaedic: General foot morphology: Rectus medial longitudinal arch +5/5 muscle strength Dorsiflexion, Plantarflexion, Inversion, Eversion bilateral. Pain with active eversion on the left. Ankle joint ROM is full B/L. Minimal tenderness to the 5th metatarsal base. No tenderness to the ankle joint. No tenderness along the peroneal tendons. No tenderness to the tarsometatarsal joint complex. No tenderness to the 5th toe. No tenderness to the ATFL. Radiographs: 3 views of the left foot were taken and reviewed today. Impression: Avulsion fracture to the fifth metatarsal styloid. No change in position. Increased callus formation. ASSESSMENT: This 32 year old female patient presents today with left 5th metatarsal non-displaced avulsion fracture. Progressing well with conservative care. Plan: A problem focused history and physical examination were preformed. The patient was educated on clinical and radiographic findings, diagnosis and treatment plans. Patient state that she understands all that has been explained and all questions were answered to her apparent satisfaction. - Shoe gear and activities to tolerance. - Educated on signs and symptoms to watch for and instructed to call if any should arise. Follow up as needed Nestor Vega DPM, PGY-3 I personally saw and examined the patient. I reviewed the resident's note. I agree with the resident's assessment and plan unless otherwise noted. Mili Hernandez DPM documented in this encounter [facility] 09-10-2022 Note HNO ID: [id number] Author: Mili Hernandez DPM Service: ? Author Type: Physician Type: Progress Notes Filed: 09/10/2022 8:49 AM Note Text: PODIATRY OFFICE NOTE Chief Complaint: Left foot 5th metatarsal fracture HPI: This 32 year old female with PMH indicated below presents for follow up of left 5th metatarsal fracture. DOI: 07/31/22. Since last visit, she has been weightbearing as tolerated in a boot. Admit to walking out of the boot at home. States she is doing well and denies pain when in the boot. Denies nausea, vomiting, fever, chills, shortness of breath, calf pain, or chest pain. Denies any other pedal complaints at this time. PCP: No primary care provider on file.: History reviewed. No pertinent past medical history.: Current Outpatient Medications Medication Sig LO LOESTRIN FE 1 mg-10 mcg (24)/10 mcg (2) TAKE 1 TABLET BY MOUTH EVERY DAY FOR 28 DAYS No current facility-administered medications for this visit. : ALLERGIES Allergen Reactions Amoxicillin Rash Penicillins Rash : PAST SURGICAL HISTORY Procedure Laterality Date TONSILLECTOMY AND ADENOIDECTOMY History reviewed. No pertinent family history.: Social History Tobacco Use Smoking status: Never Smokeless tobacco: Never Substance Use Topics Alcohol use: Yes Comment: social Drug use: Never Physical Exam: Patient is alert and oriented x 3 in NAD. Patient is a 32 year old female who appears well developed, well nourished and with good attention to hygiene and body habitus. Resp 16 Ht 165.1 cm (5' 5 ) Wt 74.8 kg (165 lb) BMI 27.46 kg/m? Vascular: DP and PT pulses are palpable. CFT less than 3 seconds to all digits bilateral. Skin temperature is warm to warm from proximal to distal bilateral. Hair growth is noted. Mild edema noted to the left llateral midfoot. No varicosities noted. Neuro: Light touch intact bilateral. Derm: Skin texture and turgor within normal limits. Toenails normal in appearance. Webspaces 1-4 clean, dry, intact b/l. No rashes, subcutaneous nodules, or open lesions noted. No hyperkeratotic tissue. Ecchymosis resolved. Musculoskeletal/Orthopaedic: General foot morphology: Rectus medial longitudinal arch +5/5 muscle strength Dorsiflexion, Plantarflexion, Inversion, Eversion bilateral. Pain with active eversion on the left. Ankle joint ROM is full B/L. Focal tenderness to the 5th metatarsal base. No tenderness to the ankle joint. No tenderness along the peroneal tendons. No tenderness to the tarsometatarsal joint complex. No tenderness to the 5th toe. No tenderness to the ATFL. Radiographs: 3 views of the left foot were taken and reviewed today. Impression: Avulsion fracture to the fifth metatarsal styloid. No change in position. Interval callus formation. ASSESSMENT: This 32 year old female patient presents today with left 5th metatarsal non-displaced avulsion fracture. Progressing well with conservative care. Plan: A problem focused history and physical examination were preformed. The patient was educated on clinical and radiographic findings, diagnosis and treatment plans. Patient state that she understands all that has been explained and all questions were answered to her apparent satisfaction. - Can transition out of the boot into a lace up ankle brace and supportive tennis shoes. - Lace up ankle brace fit and dispensed today. - Begin home therapy. Instructions and theraband dispensed. - Educated on signs and symptoms to watch for and instructed to call if any should arise. Follow up in 6 weeks with repeat x-rays. Mili Hernandez DPM [facility] 09-10-2022 Note HNO ID: [id number] Author: Bernardino Huang Service: ? Author Type: Shovel Engineer Type: Progress Notes Filed: 09/10/2022 8:49 AM Note Text: REVIEW OF SYSTEMS: GENERAL: Well developed, well nourished. No acute distress PAIN: Negative for pain, history of chronic pain or current treatment for chronic pain conditions CARDIOVASCULAR: Negative for chest pain, leg swelling and palpations. MSK: Negative for joint swelling SKIN: Negative for lesions, rash, itching, metal sensitivity NEURO: Negative for seizure, trauma, numbness/tingling of extremities. ENDOCRINE: Negative for diabetic associated symptoms HEMATOLOGY: Negative for excessive bleeding, clots, bleeding disorders. [facility] 09-10-2022 History of Presen t illness Narrative Images from the original note were not included. PODIATRY OFFICE NOTE Chief Complaint: Left foot 5th metatarsal fracture HPI: This 32 year old female with PMH indicated below presents for follow up of left 5th metatarsal fracture. DOI: 07/31/22. Since last visit, she has been weightbearing as tolerated in a boot. Admit to walking out of the boot at home. States she is doing well and denies pain when in the boot. Denies nausea, vomiting, fever, chills, shortness of breath, calf pain, or chest pain. Denies any other pedal complaints at this time. PCP: No primary care provider on file.: History reviewed. No pertinent past medical history.: Current Outpatient Medications Medication Sig LO LOESTRIN FE 1 mg-10 mcg (24)/10 mcg (2) TAKE 1 TABLET BY MOUTH EVERY DAY FOR 28 DAYS No current facility-administered medications for this visit. : ALLERGIES Allergen Reactions Amoxicillin Rash Penicillins Rash : PAST SURGICAL HISTORY Procedure Laterality Date TONSILLECTOMY & ADENOIDECTOMY <AGE 11 History reviewed. No pertinent family history.: Social History Tobacco Use Smoking status: Never Smokeless tobacco: Never Substance Use Topics Alcohol use: Yes Comment: social Drug use: Never Physical Exam: Patient is alert and oriented x 3 in NAD. Patient is a 32 year old female who appears well developed, well nourished and with good attention to hygiene and body habitus. Resp 16 Ht 165.1 cm (5' 5 ) Wt 74.8 kg (165 lb) BMI 27.46 kg/m Vascular: DP and PT pulses are palpable. CFT less than 3 seconds to all digits bilateral. Skin temperature is warm to warm from proximal to distal bilateral. Hair growth is noted. Mild edema noted to the left llateral midfoot. No varicosities noted. Neuro: Light touch intact bilateral. Derm: Skin texture and turgor within normal limits. Toenails normal in appearance. Webspaces 1-4 clean, dry, intact b/l. No rashes, subcutaneous nodules, or open lesions noted. No hyperkeratotic tissue. Ecchymosis resolved. Musculoskeletal/Orthopaedic: General foot morphology: Rectus medial longitudinal arch +5/5 muscle strength Dorsiflexion, Plantarflexion, Inversion, Eversion bilateral. Pain with active eversion on the left. Ankle joint ROM is full B/L. Focal tenderness to the 5th metatarsal base. No tenderness to the ankle joint. No tenderness along the peroneal tendons. No tenderness to the tarsometatarsal joint complex. No tenderness to the 5th toe. No tenderness to the ATFL. Radiographs: 3 views of the left foot were taken and reviewed today. Impression: Avulsion fracture to the fifth metatarsal styloid. No change in position. Interval callus formation. ASSESSMENT: This 32 year old female patient presents today with left 5th metatarsal non-displaced avulsion fracture. Progressing well with conservative care. Plan: A problem focused history and physical examination were preformed. The patient was educated on clinical and radiographic findings, diagnosis and treatment plans. Patient state that she understands all that has been explained and all questions were answered to her apparent satisfaction. - Can transition out of the boot into a lace up ankle brace and supportive tennis shoes. - Lace up ankle brace fit and dispensed today. - Begin home therapy. Instructions and theraband dispensed. - Educated on signs and symptoms to watch for and instructed to call if any should arise. Follow up in 6 weeks with repeat x-rays. Mili Hernandez DPM REVIEW OF SYSTEMS: GENERAL: Well developed, well nourished. No acute distress PAIN: Negative for pain, history of chronic pain or current treatment for chronic pain conditions CARDIOVASCULAR: Negative for chest pain, leg swelling and palpations. MSK: Negative for joint swelling SKIN: Negative for lesions, rash, itching, metal sensitivity NEURO: Negative for seizure, trauma, numbness/tingling of extremities. ENDOCRINE: Negative for diabetic associated symptoms HEMATOLOGY: Negative for excessive bleeding, clots, bleeding disorders. documented in this encounter [facility] 09-08-2022 Miscellaneous Notes Spoke with patient and appointment was made Tangela Deutsch ----- Message from Bel Daly sent at 09/08/2022 8:17 AM EDT ----- Regarding: Orthopedics/Figas/Left Foot Fracture appt Subject Line Format: Orthopedics / [Provider Name or Open & Body Part ] / [Issue] Patient has been identified by name and Date of (Y/N): Y Patient: Cele Blanc Date of : 1990 Previous Provider Seen: Sunshine Body Part(s) Identified: Left Foot Diagnosis/Reason For Visit: Fracture Reason for the call/escalation: Pt wants to know if her appt can be moved to this week since she is off. Please call. If reason for call/escalation is discharge from ED/ER or Hospital, which facility was the patient seen at: na Was an appointment scheduled (Y/N): na Person calling if other than patient: pt Return call to if other than patient: pt Best contact number: [phone] Thank you, Bel Daly September 08, 2022 8:17 AM documented in this encounter [facility] 08-04-2022 Note HNO ID: [id number] Author: Mili Hernandez DPM Service: ? Author Type: Physician Type: Progress Notes Filed: 08/04/2022 5:46 PM Note Text: PODIATRY OFFICE NOTE Chief Complaint: Left foot 5th metatarsal fracture HPI: This 32 year old female with PMH indicated below presents complaining of left 5th metatarsal fracture. Patient states that last she fell and injured her left foot. Presented to the ED where radiographs were taken which showed evidence of a non-displaced avulsion fracture of the left 5th metatarsal. She was given a CAM boot and states that she has remained minimally weight bearing to the left foot since the injury with crutches. Denies any pain at this time with rest but does have some discomfort with direct pressure. Denies any constitutional symptoms. Denies any additional pedal complaints. PCP: No primary care provider on file.: History reviewed. No pertinent past medical history.: Current Outpatient Medications Medication Sig LO LOESTRIN FE 1 mg-10 mcg (24)/10 mcg (2) TAKE 1 TABLET BY MOUTH EVERY DAY FOR 28 DAYS No current facility-administered medications for this visit. : ALLERGIES Allergen Reactions Amoxicillin Rash Penicillins Rash : PAST SURGICAL HISTORY Procedure Laterality Date TONSILLECTOMY AND ADENOIDECTOMY History reviewed. No pertinent family history.: Social History Tobacco Use Smoking status: Never Smokeless tobacco: Never Substance Use Topics Alcohol use: Yes Comment: social Drug use: Never Physical Exam: Patient is alert and oriented x 3 in NAD. Patient is a 32 year old female who appears well developed, well nourished and with good attention to hygiene and body habitus. Resp 18 Ht 166.4 cm (5' 5.5 ) Wt 74.8 kg (165 lb) BMI 27.04 kg/m? Vascular: DP and PT pulses are palpable. CFT less than 3 seconds to all digits bilateral. Skin temperature is warm to warm from proximal to distal bilateral. Hair growth is noted. Edema noted to the left foot. No varicosities noted. Neuro: Light touch intact bilateral. Derm: Skin texture and turgor within normal limits. Toenails normal in appearance. Webspaces 1-4 clean, dry, intact b/l. No rashes, subcutaneous nodules, or open lesions noted. No hyperkeratotic tissue. Ecchymosis overlying the dorsolateral midfoot. Musculoskeletal/Orthopaedic: General foot morphology: Rectus medial longitudinal arch +5/5 muscle strength Dorsiflexion, Plantarflexion, Inversion, Eversion bilateral Ankle joint ROM is full B/L. Focal tenderness to the 5th metatarsal base. No tenderness to the ankle joint. No tenderness along the peroneal tendons. No tenderness to the tarsometatarsal joint complex. No tenderness to the 5th toe. No tenderness to the ATFL. ASSESSMENT: This 32 year old female patient presents today with left 5th metatarsal non-displaced avulsion fracture Plan: A comprehensive history and physical examination were preformed. The patient was educated on clinical and radiographic findings, diagnosis and treatment plans. Patient state that she understands all that has been explained and all questions were answered to her apparent satisfaction. Etiology and treatment options were discussed with the patient. - Continue with the CAM boot. Patient okay to WBAT in the boot. - Remove the boot at rest to perform ankle ROM exercises - Advised patient on the risk of developing blood clots while immobilized. Patient advised to call immediately or go to the ED if she is to develop worsening calf pain, chest pain or SOB while in the boot. - Educated on signs and symptoms to watch for and instructed to call if any should arise. Follow up in 4-6 weeks with repeat x-rays. William Galvin DPM PGY3 I personally saw and examined the patient. I reviewed the resident's note. I agree with the resident's assessment and plan unless otherwise noted. Mili Hernandez DPM [facility] 08-04-2022 Note HNO ID: [id number] Author: Arelis Luna MA Service: ? Author Type: Clinical Field Specialist Type: Progress Notes Filed: 08/04/2022 5:46 PM Note Text: REVIEW OF SYSTEMS: GENERAL: Well developed, well nourished. No acute distress PAIN: Pain 11/17 CARDIOVASCULAR: Negative for chest pain, leg swelling and palpations. MSK: Negative for joint swelling SKIN: Negative for lesions, rash, itching, metal sensitivity NEURO: Negative for seizure, trauma, numbness/tingling of extremities. ENDOCRINE: Negative for diabetic associated symptoms HEMATOLOGY: Negative for excessive bleeding, clots, bleeding disorders. Arelis Luna MA [facility] 08-04-2022 History of Presen t illness Narrative Images from the original note were not included. PODIATRY OFFICE NOTE Chief Complaint: Left foot 5th metatarsal fracture HPI: This 32 year old female with PMH indicated below presents complaining of left 5th metatarsal fracture. Patient states that last she fell and injured her left foot. Presented to the ED where radiographs were taken which showed evidence of a non-displaced avulsion fracture of the left 5th metatarsal. She was given a CAM boot and states that she has remained minimally weight bearing to the left foot since the injury with crutches. Denies any pain at this time with rest but does have some discomfort with direct pressure. Denies any constitutional symptoms. Denies any additional pedal complaints. PCP: No primary care provider on file.: History reviewed. No pertinent past medical history.: Current Outpatient Medications Medication Sig LO LOESTRIN FE 1 mg-10 mcg (24)/10 mcg (2) TAKE 1 TABLET BY MOUTH EVERY DAY FOR 28 DAYS No current facility-administered medications for this visit. : ALLERGIES Allergen Reactions Amoxicillin Rash Penicillins Rash : PAST SURGICAL HISTORY Procedure Laterality Date TONSILLECTOMY & ADENOIDECTOMY <AGE 11 History reviewed. No pertinent family history.: Social History Tobacco Use Smoking status: Never Smokeless tobacco: Never Substance Use Topics Alcohol use: Yes Comment: social Drug use: Never Physical Exam: Patient is alert and oriented x 3 in NAD. Patient is a 32 year old female who appears well developed, well nourished and with good attention to hygiene and body habitus. Resp 18 Ht 166.4 cm (5' 5.5 ) Wt 74.8 kg (165 lb) BMI 27.04 kg/m Vascular: DP and PT pulses are palpable. CFT less than 3 seconds to all digits bilateral. Skin temperature is warm to warm from proximal to distal bilateral. Hair growth is noted. Edema noted to the left foot. No varicosities noted. Neuro: Light touch intact bilateral. Derm: Skin texture and turgor within normal limits. Toenails normal in appearance. Webspaces 1-4 clean, dry, intact b/l. No rashes, subcutaneous nodules, or open lesions noted. No hyperkeratotic tissue. Ecchymosis overlying the dorsolateral midfoot. Musculoskeletal/Orthopaedic: General foot morphology: Rectus medial longitudinal arch +5/5 muscle strength Dorsiflexion, Plantarflexion, Inversion, Eversion bilateral Ankle joint ROM is full B/L. Focal tenderness to the 5th metatarsal base. No tenderness to the ankle joint. No tenderness along the peroneal tendons. No tenderness to the tarsometatarsal joint complex. No tenderness to the 5th toe. No tenderness to the ATFL. ASSESSMENT: This 32 year old female patient presents today with left 5th metatarsal non-displaced avulsion fracture Plan: A comprehensive history and physical examination were preformed. The patient was educated on clinical and radiographic findings, diagnosis and treatment plans. Patient state that she understands all that has been explained and all questions were answered to her apparent satisfaction. Etiology and treatment options were discussed with the patient. - Continue with the CAM boot. Patient okay to WBAT in the boot. - Remove the boot at rest to perform ankle ROM exercises - Advised patient on the risk of developing blood clots while immobilized. Patient advised to call immediately or go to the ED if she is to develop worsening calf pain, chest pain or SOB while in the boot. - Educated on signs and symptoms to watch for and instructed to call if any should arise. Follow up in 4-6 weeks with repeat x-rays. William Galvin DPM PGY3 I personally saw and examined the patient. I reviewed the resident's note. I agree with the resident's assessment and plan unless otherwise noted. Mili Hernandez DPM REVIEW OF SYSTEMS: GENERAL: Well developed, well nourished. No acute distress PAIN: Pain 7/10 CARDIOVASCULAR: Negative for chest pain, leg swelling and palpations. MSK: Negative for joint swelling SKIN: Negative for lesions, rash, itching, metal sensitivity NEURO: Negative for seizure, trauma, numbness/tingling of extremities. ENDOCRINE: Negative for diabetic associated symptoms HEMATOLOGY: Negative for excessive bleeding, clots, bleeding disorders. Arelis Luna MA documented in this encounter [facility] 07-31-2022 Miscellaneous Notes Images from the original note were not included. Vinicio Awad MD You 12 minutes ago (1:34 PM) Foot and ankle follow-up with Dr. Norwood/Dr. Hernandez/[facility] Up You Vinicio Awad MD 34 minutes ago (1:12 PM) CR This patient was seen in the ED today. You are campus receptionist. Would you like to see this patient? Nu Corrigan Please schedule with one of your providers. Nu Corrigan ----- Message from Bel Daly sent at 07/31/2022 10:24 AM EDT ----- Regarding: Orthopedics / Open Foot: Fracture Broken / Recent ED Visit Subject Line Format: Orthopedics / [Provider Name or Open & Body Part ] / [Issue] Patient has been identified by name and Date of (Y/N): Y Patient: Cele Blanc Date of : 1990 Previous Provider Seen: NA Body Part(s) Identified: Left Foot Diagnosis/Reason For Visit: Fracture Reason for the call/escalation: ER F/U If reason for call/escalation is discharge from ED/ER or Hospital, which facility was the patient seen at: [facility] Was an appointment scheduled (Y/N): n Person calling if other than patient: pt Return call to if other than patient: pt Best contact number: [phone] Thank you, Bel Daly July 31, 2022 10:24 AM documented in this encounter [facility] Evaluation note Diagnosis Closed nondisplaced fracture of fifth metatarsal bone of left foot, initial encounter- Primary [facility] Closed nondisplaced fracture of fifth metatarsal bone of left foot, initial encounter- Primary [facility] Diagnosis Closed nondisplaced fracture of fifth metatarsal bone of left foot with routine healing, subsequent encounter- Primary [facility] this [facility] noteNo assessment information availableC[facility] Work Phone: Reason for referral (narrative)* Diagnostic Procedure Only (Routine) - Pending Review Specialty Diagnoses / Procedures Referred By Juli anderson Referred To Contact XR IMAGING Diagnoses Closed nondisplaced fracture of fifth metatarsal bone of left foot, initial encounter Procedures XR FOOT GENERAL 3V AP/LAT/OBL LEFT RADEX FOOT COMPLETE MINIMUM 3 VIEWS Mili Hernandez DPM [address] [place] [address] Xr Imaging Referral ID Status Reason Start Date Expiration Date Visits Requested Visits Authorized [id number] Pending Review Auto-Generat ed Referral 09/10/2022 10/10/2023 1 1 [facility] Diagnostic Procedure Only (Routine) - Pending Review Specialty Diagnoses / Procedures Referred By Contac t Referred To Contact XR IMAGING Diagnoses Closed nondisplaced fracture of fifth metatarsal bone of left foot with routine healing, subsequent encounter Procedures XR FOOT GENERAL 3V AP/LAT/OBL LEFT RADEX FOOT COMPLETE MINIMUM 3 VIEWS Mili Hernandez DPM [address] [place] [address] Xr Imaging Referral ID Status Reason Start Date Expiration Date Visits Requested Visits Authorized [id number] Pending Review Auto-Generat ed Referral 11/25/2022 12/25/2023 1 1 [facility] Summary Purpose Family History No Family History Records FoundNo Family History Records FoundNo Family History Records FoundNo Family History Records Found Advance Directives No Advanced Directives Records Found Advance Directive Response Recorded Date/ Time Advance Directives No November 02 10:25am Additional Source Comments Source Comments (unrecognize d section and content) In the event this informatio n is protected by the Federal Confidentiality of Alcohol and Drug Abuse Patient Records regulations: The Federal rules restrict any use of the information to criminally investigate or prosecute any alcohol or drug abuse patient.[facility] the event this information is protected by the Federal Confidentiality of Alcohol and Drug Abuse Patient Records regulations: The Federal rules restrict any use of the information to criminally investigate or prosecute any alcohol or drug abuse patient.[facility] the event this information is protected by the Federal Confidentiality of Alcohol and Drug Abuse Patient Records regulations: The Federal rules restrict any use of the information to criminally investigate or prosecute any alcohol or drug abuse patient.[facility] the event this information is protected by the Federal Confidentiality of Alcohol and Drug Abuse Patient Records regulations: The Federal rules restrict any use of the information to criminally investigate or prosecute any alcohol or drug abuse patient.[facility] the event this information is protected by the Federal Confidentiality of Alcohol and Drug Abuse Patient Records regulations: The Federal rules restrict any use of the information to criminally investigate or prosecute any alcohol or drug abuse patient.[facility] Reason for Visit (unrecogniz ed section and content) Reason Comments Appointment Reason Comments New Reason Comments Follow Up Reason Comments Follow Up Fracture INFORMATION SOURCE (unrecogn ized section and content) DATE CREATED AUTHOR 08/06/2022 [facility] DATE CREATED AUTHOR AUTHOR'S ORGANIZ ATION 11/26/2022 [facility] DATE CREATED AUTHOR AUTHOR'S ORGANIZ ATION 10/31/2023 [facility] EPIC DATE CREATED AUTHOR AUTHOR'S ORGANIZ ATION 11/01/2023 [facility] Care Teams (unrecognized sec tion and content) Team Status: Active Member Role Status Dates Bella Ramon APRN [employer]-C Primary Care Provider Activ e Team Status: Inactive Member Role Status Dates Bella Ramon APRN [employer] Primary Care Provider Activ e Start: October 30, 2023 End: October 30, 2023 Fidelia Hobson Attending Provider Active Start: 2023 End: October 30, 2023 Goals (unrecognized section and content) Goals may be documented in a n alternate section FOR RECORDS PERTAINING TO PATIENTS WHO ARE OR HAVE BEEN ENROLLED IN A CHEMICAL DEPENDENCY/SUBSTANCEABUSE PROGRAM, SOME INFORMATION MAY BE OMITTED. This clinical summary was aggregated from multiple sources. Caution should be exercised in using it in the provision of clinical care. This summary normalizes information from multiple sources, and as a consequence, information in this document may materially change the coding, format and clinical context of patient data. In addition, data may be omitted in some cases. CLINICAL DECISIONS SHOULD BE BASED ON THE PRIMARY CLINICAL RECORDS. [facility]. provides no warranty or guarantee of the accuracy or completeness of information in this document.
== END 2023-10-29 15:15 | disposition home or self-care (01) ==
LOC: LAB 15:14
PROVIDERS: Visit Provider Obstetrics & Gynecology
DX: R87.612 Low grade squamous intraepithelial lesion on cytologic smear of cervix (LGSIL) (principal)
CPT/HCPCS: 88305

== ENCOUNTER 2024-05-02 21:06 | Outpatient (REF) | payer BC, SELFPAY ==
--- OUTSIDE RECORDS SUMMARY | 2024-05-02 21:10 | XMS_ITS | CCD ---
Author Organization [facility] Care Team Providers Care Rn Corrections Name Role Phone Unavailable Primary Care Provider Unavailabl e CHEPE, DR HAWKINS Primary Care Unavailable GEOVANNI, DR EH White Attending Unavailable WEST, DR EH White Admitting Unavailable WEST, DR EH White Consulting Unavailable WEST, DR EH Whtie Attending [facility]available [facility]WKINS Primary Care Unavailable WEST, DR EH White Admitting Unavailable WEST, DR EH White Consulting Unavailable FIDELIA HOBSON Consulting Unavailable FIDELIA HOBSON Attending Unavailable CHEPE, DR HAWKINS Primary Care Unavailable FIDELIA HOBSON Admitting Unavailable ARIELLE COOPER Attending Unavailable MILI HERNANDEZ Attending Unavailable MILI HERNANDEZ Attending Unavailable MILI HERNANDEZ Attending Unavailable NEAL Ramon Primary Care Provider Fidelia Hobson Attending Provider Bella Ramon Primary Care Unavailable Fidelia Hobson Attending Unavailable Fidelia Hobson Admitting Unavailable WILMER RUVALCABA Attending Unavailable RIO MEI Attending Unavailable WILMER RUVALCABA Attending Unavailable WILMER RUVALCABA Attending Unavailable FIDELIA HOBSON Attending Unavailable WILMER RUVALCABA Attending Unavailable Charlie Barnes MD Primary Care Provider Wilmer Ruvalcaba NP Unavailable Allergies Allergy Classification Reported Allergen(s) Allergy Type Date of Onset Reaction(s) Facility penicillAMINE (2 sources) penicillAMINE; Translations: [penicillamine] Drug Allergy 10-23-2020 [facility] Penicillins (antibiotic) (2 sources) Amoxicillin; Translations: [amoxicillin] Drug Allergy 10-23-2020 [facility] (6 sources) Penicillins; Translations: [PENICILLINS] Drug Allergy 07-31-2022 Rash [facility] (10 sources) Amoxicillin; Translations: [AMOXICILLIN] Drug Allergy 08-04-2022 Rash [facility] (5 sources) Penicillins Drug Allergy 03-14-2019 Rash [facility] Healthcare Medications Current Medications Medication Drug Class(es) Dates [...] for pain for up to 3 days. Ethinyl Estradiol / Ferrous fumarate / Norethindrone (10 sources) Estrogen Start: 05-02-2024 End: 07-31-2024 take 1 tablet by mouth once daily norethindrone-ethi nyl estradiol-iron (Lo Loestrin Fe) 1 MG-10 MCG / 10 MCG tablet Indications: Encounter for control pills maintenance Take 1 tablet by mouth Daily 90 tablet 2 05/02/2024 07/31/2024 Active Start: 01-07-2024 End: 05-02-2024 take 1 tablet by mouth once daily Lo Loestrin Fe 1 MG-10 MCG / 10 MCG tablet Indications: Encounter for control pills maintenance Take 1 tablet by mouth once daily 28 tablet 3 01/07/2024 05/02/2024 Discontinued (Reorder) Start: 01-07-2024 take 1 tablet by andrew th once daily Lo Loestrin Fe 1 MG-10 MCG / 10 MCG tablet Indications: Encounter for control pills maintenance Take 1 tablet by mouth once daily 28 tablet 3 01/07/2024 Active Start: 12-08-2022 take 1 tablet by andrew th once daily norethindrone-ethinyl estradiol-iron (Lo Loestrin Fe) 1 MG-10 MCG / 10 MCG tablet Indications: Encounter for control pills maintenance Take 1 tablet by mouth 1 (one) time each day at the same time. 84 tablet 3 12/08/2022 Active Start: 07-21-2022 take 1 tablet by andrew th once daily LO LOESTRIN FE 1 mg-10 mcg (24)/10 mcg (2) TAKE 1 TABLET BY MOUTH EVERY DAY FOR 28 DAYS 0 07/21/2022 Active Comment on above: TAKE 1 TABLET BY ANDREW TH EVERY DAY FOR 28 DAYS QUEtiapine 25 mg oral tablet (5 sources) Atypical Antipsychotic Start: End: 4 take 1 tablet by mouth at bedtime QUEtiapine (SEROquel) 25 MG tablet Indications: Anxiety , Mild depression (CMS/HCC) Take 1 tablet (25 mg) by mouth at bedtime 60 tablet 10/07/2023 05/02/2024 Discontinued Problems Active Problems Problem Classification Problem Date Documented Date Episodic/Chronic Anxiety disorders (2 sources) Anxiety; Translations: [Anxiety disorder, unspecified] 01-04-2024 Chronic Cancer of cervix (3 sources) Low grade squamous intraepithelial lesion on cervical Papanicolaou smear; Translations: [Low grade squamous intraepithelial lesion on cytologic smear of cervix (LGSIL)] Onset: 05-02-2024 05-02-2024 Episodic Contraceptive and procreative management (1 source) Oral contraception status; Translations: [Encounter for surveillance of contraceptive pills] 05-02-2024 Episodic Fracture of lower limb (5 sources) Closed fracture of fifth metatarsal bone; Translations: [Nondisplaced fracture of fifth metatarsal bone, left foot, initial encounter for closed fracture] Onset: 07-31-2022 Episodic Immunizations and screening for infectious disease (1 source) Encounter for screening for human papillomavirus (HPV); Translations: [ENC SCREENING HUMAN PAPILLOMAVIRUS] Onset: 07-07-2022 Episodic Other screening for suspected conditions (not mental disorders or infectious disease) (7 sources) Encounter for screening for malignant neoplasm of cervix; Translations: [Patient encounter status] Onset: 07-03-2022 Episodic Past or Other Problems Problem Classification Problem Date Documented Date Episodic/Chronic Mood disorders (5 sources) Mild depression; Translations: [Mild depression] Onset: 12-26-2022 Resolved: 10-07-2023 10-07-2023 Chronic Other bone disease and musculoskeletal deformities (5 sources) Osteochondritis dissecans; 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] Onset: 12-26-2022 Resolved: 01-04-2024 01-04-2024 Chronic Results Test Name Value Interpretation Reference Range Facility [facility] 10-29-2023 L Specimen: [id number] Received: 10/30/23 Status: ISIDRO Mccollum Num: [id number] Spec Type: Surgical Subm Dr: Fidelia Hobson Tissues: A Endometrium - Biopsy (EMB) Procedures: HE/2, Gross/Micro L4 Age/ Patient Sex Location Account Attending Physician AlecCele 33/F LABELL [id number] Fidelia Hobson SPEC NUM: [id number] RECD: 10/30/23 STATUS: ISIDRO MCCOLLUM NUM: [id number] TAMARA: 10/29/[address]: Fidelia Hobson ENTERED: 10/30/[address]: Leo,Lab SPEC TYPE: Surgical DEPT: ERROL BELCHER ORDERED: HE/2, Gross/Micro L4 ORDERED: HE/2, Gross/Micro L4 This Amended Report is issued to correct the following: Previously Reported as: Endometrium, biopsy: Minute fragments of cervical mucosa with koilocytic atypia, consistent with HPV infection. No endometrium is identified. Amended Report Information: Endocervix, biopsy: Minute fragments of cervical mucosa with koilocytic atypia, consistent with HPV infection. Addendum Signed (signature on file) Irena Hirsch MD 11/03/23 1558 ---- Pathological Diagnosis Endometrium, biopsy: Minute fragments of cervical mucosa with koilocytic atypia, consistent with HPV infection. No endometrium is identified. ---- Specimen: [id number] Received: 10/30/23 Status: ISIDRO Mccollum Num: [id number] Spec Type: Surgical Subm Dr: Fidelia Hobson Tissues: A Endometrium - Biopsy (EMB) Procedures: HE/2, Gross/Micro L4 ---- Patient: Cele Blanc [id number] (Continued) ---- Specimen: [id number] Received: 10/30/23 (Continued) Signed (signature on file) Natalie_ Irena Hirsch MD 11/02/23 1408 ---- Specimen: [id number] Received: 10/30/23 Status: ISIDRO Mccollum Num: [id number] Spec Type: Surgical Subm Dr: Fidelia Hobson Tissues: A Endometrium - Biopsy (EMB) Procedures: HE/2, Gross/Micro L4 ---- Patient: Cele Blanc [id number] (Continued) ---- Specimen: [id number] Received: 10/30/23-1338 (Continued) Clinical Information LSIL, positive HPV Gross Description Received in formalin labeled with the patient's name, date of and endometrium (per requisition) are multiple minute wan tissue fragments measuring in aggregate 0.3 x 0.2 x 0.1 cm, entirely submitted in A1. CPT Codes 45709 ---- ---- Specimen: [id number] Received: 10/30/23 Status: ISIDRO Mccollum Num: [id number] Spec Type: Surgical Subm Dr: Fidelia Hobson Tissues: A Endometrium - Biopsy (EMB) Procedures: HE/2, Gross/Micro L4 ---- Patient: Cele Blanc [id number] (Continued) ---- Signed (signature on file) Irena Hirsch MD 11/02/23 1408 Normal [facility] CNOVon 10-27-2022 CNOV Office Visit (AGHWG1 ) CELE BLANC ([id number]) 1990 F [place] Date Time Provider Department 10/27/22 11:15 AM [facility] During your visit today, we recorded the [...] [S92.355D] Order(s):XR FOOT GENERAL 3V AP/LAT/OBL LEFT [[id number]] Order #: [id number] Prescriptions as of 11/25/2022 - LO LOESTRIN FE 1 mg-10 mcg (24)/10 mcg (2) TAKE 1 TABLET BY MOUTH EVERY DAY FOR 28 DAYS Problem List As Of Date: 10/27/2022 (None) Disposition: Return if symptoms worsen or fail to improve. Follow-up and Disposition History for Encounter Date Provider Department Center 10/27/2022 [id number] HERNANDEZ AGHWG1 [facility] Encounter Status:Closed by MILI HERNANDEZ on 7/18/23 [facility] 09-10-2022 CNOV Office Visit (AGPOB1 ) CELE BLANC ([id number]) 1990 F [place] Date Time Provider Department 09/10/22 8:15 AM MILI HERNANDEZ AGPOB1 During your visit today, we recorded [...] [S92.355A] Order(s):XR FOOT GENERAL 3V AP/LAT/OBL LEFT [[id number]] Order #: [id number] Prescriptions as of 09/10/2022 - LO LOESTRIN FE 1 mg-10 mcg (more content not included)... Normal [facility] (AGPOB1) CELE BLANC ([id number]) 1990 F [place] Date Time Provider Department 09/08/22 MLII HERNANDEZ AGPOB1 During your visit today, we recorded the following information about you: Tangela Carter [facility] 09/08/2022 12:38 PM Signed ----- Message from Bel Daly sent at 09/08/2022 8:17 AM EDT ----- Regarding: Orthopedics/Figas/Left Foot Fracture appt Subject Line Format: Orthopedics / [Provider Name or Open AND Body Part ] / [Issue] Patient has been identified by name and Date of (Y/N): Y Patient: Cele Blanc Date of : 1990 Previous Provider Seen: Mary Body Part(s) Identified: Left Foot Diagnosis/Reason For [...] other than patient: pt Best contact number: [phone] Thank you, Bel Daly September 08, 2022 [...] by TANGELA HULL on 09/08/22 [facility] CNOVon 08-04-2022 CNOV Office Visit (AGHWG1 ) CELE BLANC ([id number]) 1990 F [place] Date Time Provider Department 08/04/22 3:00 PM MILI HERNANDEZ AGHWG1 During your visit today, we recorded the following information about you: Respiration Weight Height 18/minute 74.8 kg 1.664 m Arelis Luna MA 08/04/2022 5:46 PM Signed REVIEW OF SYSTEMS: GENERAL: Well developed, well nourished. No acute distress PAIN: Pain /10 CARDIOVASCULAR: Negative for chest pain, leg swelling [...] - Fully Assessed Reason for Visit: New [186453] Primary Visit Diagnosis (more content not included)... Normal [facility] ALLIED HEALTHon 07-31-2022 ALLIED HEALTH HNO ID: [id number] Author: RT Bee(R) Service: Radiology Author Type: [...] July 31, 2022 8:37 AM [facility] CNPNon 07-31-2022 CNPN Telephone (AGPOB1) CELE BLANC ([id number]) 1990 F [place] Date Time Provider Department 07/31/22 AG ORTH AGPOB1 During your visit today, we [...] which facility was the patient seen at: [facility] Was an appointment scheduled (Y/N): n Person calling if other than patient: pt Return call to if other than patient: pt Best contact number: [phone] Thank you, Bel Daly July 31, 2022 10:24 AM Wendy Phillip 07/31/2022 1:49 PM Signed Vinicio Awad MD You 12 minutes ago (1:34 PM) Foot and ankle follow-up with Dr. Norwood/Dr. Hernandez/Dr. Jose Thanks, NJD You Vinicio Awad MD 34 minutes ago (1:12 PM) CR This patient was seen in the ED today. 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 Would you like to see this patient? Meenu, Nu Please schedule with one of your providers. Thanks, Nu Carter [facility] 08/01/2022 9:02 AM Signed Mili Hernandez DPM You 12 minutes ago (8:48 AM) Anytime next week or the following is fine You Mili Hernandez DPM 18 hours ago (2:37 PM) [place] How soon should this be seen Wendy Phillip You 19 hours ago (1:49 PM) CR Please schedule with one of your providers. Thanks, Nu Carter [place] [facility] 08/01/2022 9:02 AM Signed Called and left message for patient to call the office back to schedule an appointment Tangela Carter [place] [facility] Allergies As of Date: 07/31/2022 Noted [...] by WENDY PHILLIP on 07/31/22 [facility] ED PROV NOTEon 07-31-2022 ED PROV NOTE HNO ID: [id number] Author: Arielle Cooper DO Service: Emergency Medicine [...] Condition at time of disposition: stable SIGNATURE: Arielle ChawlalesDO KENNETH hernandez JUSTIN J 08/27/22 0214 Normal [facility] XR ANKLE 3V AP/LAT/OBL LTon 07-31-2022 XR [...] soft tissue abnormality. IMPRESSION: Fifth metatarsal fracture. Camera Repairman: ALESHIA Transcribe Date/Time: Jul 31 2022 8:51A Dictated by : KOMAL CUELLAR MD This examination was interpreted and the report reviewed and electronically signed by: KOMAL CUELLAR MD on Jul 31 2022 8:54AM EST [id number] Normal [facility] XR FOOT 3V AP/LAT/OBL LTon 0 07-31-2022 [...] soft tissue abnormality. IMPRESSION: Fifth metatarsal fracture. Camera Repairman: ALESHIA Transcribe Date/Time: Jul 31 2022 8:51A Dictated by : KOMAL CUELLAR MD This examination was interpreted and the report reviewed and electronically signed by: KOMAL CUELLAR MD on Jul 31 2022 8:54AM EST [id number] Normal [facility] PAP ACOG PANEL 2: 30 to 65on 07-11-2022 . . Normal [facility] Comment on above: Result Comment: Perf ormed at: WB Performed By: #### [id number] #### [facility] [address] [address] [address] Morenita Hood Age Gdln ACOG Testing 30-65 Normal [facility] Comment on above: Performed By: #### [id number] #### [facility] [address] [address] [address] Morenita Hood DIAGNOSIS: Comment Abnormal [facility] Comment on above: Result Comment: EPIT HELIAL CELL ABNORMALITY. LOW GRADE SQUAMOUS INTRAEPITHELIAL LESION (LSIL). Performed at: WB Performed By: #### [id number] #### [facility] [address] [address] [address] Morenita Hood Electronically signed by: Comment Normal [facility] Comment on above: Result Comment: Maeve Chavez MD, Pathologist Performed at: WB Performed By: #### [id number] #### [facility] [address] [address] [address] Morenita Hood HPV Aptima Positive Abnormal Negative [facility] Comment on above: Result Comment: This nucleic acid amplification test detects fourteen high-risk HPV types (16,18,31,33,35,39,45,51,52,56,58,59,66,68) without differentiation. Performed at: =G Performed By: #### [id number] #### [facility] [address] [address] [address] Morenita Hood HPV Genotype Reflex Comment Normal [facility] Comment on above: Result Comment: Crit eria not met, HPV Genotype not performed. Performed at: WB Performed By: #### [id number] #### [facility] [address] [place] [address] Dr. Morenita Hood Methodology: Comment [facility] Comment on above: Result Comment: This liquid based ThinPrep(R) pap test was screened with the use of an image guided system. Performed at: WB Performed By: #### [id number] #### [facility] [address] [place] [address] Dr. Morenita Hood Note: Comment Normal [facility] Comment on above: Result Comment: The Pap smear is a screening test designed to aid in the detection of premalignant and malignant conditions of the uterine cervix. It is not a diagnostic procedure and should not be used as the sole means of detecting cervical cancer. Both false-positive and false-negative reports do occur. . Performed at: WB Performed By: #### [id number] #### [facility] [address] [place] [address] Dr. Morenita Hood Pathologist Provided ICD10 Comment Normal [facility] Comment on above: Result Comment: [id number] Performed at: WB Performed By: #### [id number] #### [facility] [address] [place] [address] Dr. Morenita Hood Performed by: Comment Normal [facility] Comment on above: Result Comment: Lorraine Bravo, Senior Pastor (ASCP) Performed at: WB Performed By: #### [id number] #### [facility] [address] [place] [address] Dr. Morenita Hood Specimen adequacy: Comment [facility] Comment on above: Result Comment: Sati sfactory for evaluation. Endocervical and/or squamous metaplastic cells (endocervical component) are present. Performed at: WB Performed By: #### [id number] #### [facility] [address] [place] [address] Dr. Morenita Hood No Panel Information [facility] Vital Signs Date Time Vital Sign Value Performing Clinician Faci lity 05-02-2024 10:10-0500 Body mass index (BMI) [Ratio] 26.59 kg/m2 Fideliakrystle Bailono Ahonya Work Phone: [place] [address]-23-2024 10:10-0500 Body weight 72.48 kg Fidelia Jazlyn DO Work Phone: [facility] 05-02-2024 10:10-0500 Diastolic blood pressure 60 mm[Hg] Fidelia Jazlyn DO Work Phone: [facility] 05-02-2024 10:10-0500 Systolic blood pressure 100 mm[Hg] Fidelia Jazlyn DO Work Phone: [facility] 01-04-2024 09:01-0400 Body height 165.1 cm Wilmer Lause SUPPLY CHAIN SPECIALIST Work Phone: [facility] 01-04-2024 09:01-0400 Body mass index (BMI) [Ratio] 25.96 kg/m2 Wilmer Lause SUPPLY CHAIN SPECIALIST Work Phone: [facility] 01-04-2024 09:01-0400 Body temperature 97.39 [degF] Wilmer Lause SUPPLY CHAIN SPECIALIST Work Phone: [facility] 01-04-2024 09:01-0400 Body weight 70.76 kg Wilmer Lause SUPPLY CHAIN SPECIALIST Work Phone: [facility] 01-04-2024 09:01-0400 Diastolic blood pressure 62 mm[Hg] Wilmer Lause SUPPLY CHAIN SPECIALIST Work Phone: [facility] 01-04-2024 09:01-0400 Heart rate 90 /min Wilmer Lause SUPPLY CHAIN SPECIALIST Work Phone: [facility] 01-04-2024 09:01-0400 Respiratory rate 18 /min Wilmer Lause SUPPLY CHAIN SPECIALIST Work Phone: [facility] 01-04-2024 09:01-0400 SaO2% (BldA) [Mass fraction] 100 % Wilmer Lause SUPPLY CHAIN SPECIALIST Work Phone: [facility] 01-04-2024 09:01-0400 Systolic blood pressure 108 mm[Hg] Wilmer Lause SUPPLY CHAIN SPECIALIST Work Phone: [facility] 10-27-2022 10:55-0400 Body height 165.1 cm Mili Figas DPM Work Phone: [facility] 10-27-2022 10:55-0400 Body weight 74.84 kg Mili Figas DPM Work Phone: [facility] 10-27-2022 10:55-0400 Respiratory rate 18 /min Mili Figas DPM Work Phone: [facility] 09-10-2022 08:10-0400 Body height 165.1 cm Mili Figas DPM Work Phone: [facility] 09-10-2022 08:10-0400 Body weight 74.84 kg Mili Figas DPM Work Phone: [facility] 09-10-2022 08:10-0400 Respiratory rate 16 /min Mili Figas DPM Work Phone: [facility] 08-04-2022 14:46-0400 Body height 166.4 cm Mili Figas DPM Work Phone: [facility] 08-04-2022 14:46-0400 Body weight 74.84 kg Mili Figas DPM Work Phone: [facility] 08-04-2022 14:46-0400 Respiratory rate 18 /min Mili Figas DPM Work Phone: [facility] Encounters Encounter Date Encounter Type Care Provider Facility Start: 05-02-2024 End: 05-02-2024 Bamboo flowsheet Fidelia Jazlyn DO Work Phone: [facility] Start: 05-02-2024 End: 05-02-2024 Bamboo flowsheet Fidelia Jazlyn DO Work Phone: [facility] Start: 05-02-2024 End: 05-02-2024 Office outpatient visit 10 minutes Fidelia Jazlyn DO Work Phone: [facility] Comment on above: LGSIL on Pap smear o f cervix; Encounter for repeat Papanicolaou smear of cervix; Encounter for control pills maintenance Start: 03-09-2024 End: 03-09-2024 Telephone encounter Annalee Laurent MA [facility] Start: 01-04-2024 End: 01-04-2024 Office outpatient visit 25 minutes Wilmer Flooduse SUPPLY CHAIN SPECIALIST Work Phone: [facility] Comment on above: Anxiety (Primary Dx) ; Encounter for well adult exam without abnormal findings Start: 01-04-2024 End: 01-04-2024 Patient encounter status Wilmer R Lause SUPPLY CHAIN SPECIALIST Work Phone: [facility] Start: 01-04-2024 End: 01-04-2024 ambulatory WILMER R LAUSE Not Available Start: 10-30-2023 End: 10-30-2023 ambulatory NEAL Pinedacarlos Work Phone: [facility] Work Phone: Start: 10-30-2023 End: 10-30-2023 Departed Referred NEAL Blanco Yenny Work Phone: [facility] Start: 10-29-2023 End: 10-29-2023 ambulatory FIDELIA JAZLYN Not Available Start: 10-07-2023 End: 10-07-2023 ambulatory WILMER R LAUSE Not Available Start: 09-16-2023 End: 09-16-2023 ambulatory WILMER R LAUSE Not Available Start: 09-14-2023 End: 09-14-2023 ambulatory RIO HAMIDA Not Available Start: 08-27-2023 End: 08-27-2023 ambulatory WILMER R LAUSE Not Available Start: 10-27-2022 End: 10-27-2022 ambulatory MILI MARY Facility:[facility] Start: 10-27-2022 End: 10-27-2022 Patient encounter procedure Mili Hernandez DPM Work Phone: [facility] Comment on above: Closed nondisplaced fracture of fifth metatarsal bone of left foot with routine healing, subsequent encounter (Primary Dx) Start: 09-10-2022 End: 09-10-2022 ambulatory MILI MARY [facility] Start: 09-10-2022 End: 09-10-2022 Patient encounter procedure Mili Hernandez DPM Work Phone: [facility] Comment on above: Closed nondisplaced fracture of fifth metatarsal bone of left foot, initial encounter (Primary Dx) Start: 09-08-2022 Telephone encounter Mili barlow DPM Work Phone: [facility] Comment on above: Appointment Start: 08-04-2022 End: 08-04-2022 ambulatory MILI HERNANDEZ Facility:[facility] Start: 08-04-2022 End: 08-04-2022 Patient encounter procedure Mili Hernandez DPM Work Phone: [facility] Comment on above: Closed nondisplaced fracture of fifth metatarsal bone of left foot, initial encounter (Primary Dx) Start: 07-31-2022 Telephone encounter [facility] Work Phone: [facility] Comment on above: Appointment Start: 07-31-2022 End: 07-31-2022 Emergency department patient visit ARIELLE COOPER Facility:[facility] Start: 07-03-2022 End: 07-03-2022 ambulatory FIDELIA HOBSON Facility: Start: 07-03-[address] EH Weston y:H1 Start: 11-26-2021 End: 03-07-[address] DOCTOR MO Facility:[facility] Procedures Date Procedure Procedure Detail Performing Clinician Start: 09-14-2023 Microscopic observat ion [Identifier] in Cervix by Cyto stain Wilmer Ruvalcaba NP Work Phone: Start: 10-27-2022 Radex foot complete minimum 3 views Milinaga Hernandez DPM Work Phone: Start: 09-10-2022 Radex foot complete minimum 3 views Mili Fignigel DPM Work Phone: Plan of Treatment Date Care Activity Detail Author Start: 07-03-2027 Screening for malign ant neoplasm of cervix [facility] Start: 09-13-2026 Screening for malign ant neoplasm of cervix Pap Smear [facility] Start: 10-24-2024 End: 10-24-2024 Patient encounter procedure 10/24/2024 1:00 PM EDT Procedure Visit [facility] [address] [id number] Fidelia Hobson, DO [address] [place] [address] [facility] Start: 09-14-2024 End: 09-14-2024 Patient encounter procedure 09/14/2024 1:00 PM EDT Office Visit [facility] [address] [id number] Fidelia Hobson, DO [address] [place] [address] [facility] Start: 05-02-2024 End: 05-02-2024 Patient encounter procedure 05/02/2024 9:40 AM EST Procedure Visit [facility] [address] [facility] [place] [address] Fidelia Hobson, DO [address] [place] [address] [facility] Start: 01-10-2024 Influenza vaccination Influenza Vacc ine (#1) [facility] Start: 01-09-[address] [facility] Start: 05-11-2022 DEPRESSION ASSESSMENT DEPRESSION ASS ESSMENT [facility] Start: 01-09-2022 Influenza vaccination INFLUENZA (#1) [facility] Start: 2019 HPV TESTING HPV TESTING [facility] Start: 2010 PAP TESTING PAP TESTING [facility] Start: 2008 Urine microalbumin profile DTAP,TDAP,TD (1 - Tdap) [facility] Start: 2007 HEPATITIS C SCREENING HEPATITIS C SC REENING [facility] Start: 2007 HIV SCREENING HIV SCREENING [facility] Start: 1989 COVID-19 VACCINE (#1) COVID-19 VACCI NE (#1) [facility] Start: 1989 HEPATITIS B (1 of 3 - 3-dose series) HEPATITIS B (1 of 3 - 3-dose series) [facility] Cytology Cervical or vaginal smear or scraping study Pap Smear Pathology and Cytology Routine LGSIL on Pap smear of cervix Ordered: 05/02/2024 [facility] Work Phone: Comment on above: Ordered: 05/02/2024 Human papilloma viru s DNA [Presence] in Unspecified specimen by Probe with amplification HPV DNA probe, amplified Microbiology Routine LGSIL on Pap smear of cervix Ordered: 05/02/2024 [facility] Comment on above: Ordered: 05/02/2024 [facility] Payers Date Payer Category Payer Medicaid [employer] [place] [place] [id number] 2021 Blue Cross Blue Shield [id number] 2021 Unknown [id number] 1989 Unknown [id number] [id number]. 2.593 1989 Unknown [id number] 2.16.840.1.293178.3.579. 2.593 1989 Unknown [id number] 2.16.840.1.127305.3.579. 2.593 1989 Unknown [id number] 2.16.840.1.180259.3.579. 2.1259 1989 Unknown [id number] 2.16.840.1.970436.3.579. 2.1259 1989 Unknown [id number] 2.16.840.1.756626.3.579. 2.1259 1989 Unknown [id number] 2.16.840.1.117182.3.579. 2.1259 1989 Unknown [id number] 2.16.840.1.412066.3.579. 2.1259 1989 Unknown [id number] 2.16.840.1.861485.3.579. 2.1259 1959 Self-pay 1959 Unknown [id number] Unknown [id number]. 2.531 Social History Date Type Detail Facility Tobacco smoking stat [facility] Tobacco smoking consumption unknown [facility] Start: 1990 Sex Assigned At Not on file [facility] Start: 08-04-2022 End: 12-31-2022 Tobacco smoking status [facility] Never smoked tobacco [facility] Start: 08-04-2022 End: 12-31-2022 Tobacco use and exposure Smokeless tobacco non-user [facility] Start: 08-04-2022 End: 10-27-2022 Alcohol intake Current drinker of alcohol (finding) [facility] Start: 08-04-2022 Alcohol Comment social [facility] Start: 10-27-2022 End: 12-31-2022 History of [address] function [facility] Start: 10-27-2022 End: 12-31-[address] [facility] Start: 1990 Sex Assigned At [facility] Start: 01-04-2024 End: 05-02-2024 Alcoholic beverage intake Ex-drinker (finding) [facility] re Active Member of [facility] bs or Organizations Not on file [facility] Do you feel stress - tense, restless, nervous, or anxious, or unable to sleep at night because your mind is troubled all the time - these days [OSQ] Very much [facility] Clinical Notes 07-31-2022 to 05-02-2024 Fidelia Jazlyn, - 05/02/2024 9:40 AM ESTTelephone Encounter - Annalee Laurent MA - 03/09/2024 4:40 PM EDTTelephone Encounter - Annalee Laurent MA - 03/09/2024 4:40 PM EDT Note Date & Type Note Facility 05-02-2024 History of Presen t illness Narrative Reason for Appointment: Patient ID: Cele Blanc is a 34 y.o. female who presents for Abnormal Pap Smear Patient presents today for Repeat Pap. Current Medications: has a current medication list which includes the following prescription(s): lo loestrin fe. Medical History: Active Ambulatory Problems Diagnosis Date Noted Encounter for repeat Papanicolaou smear of cervix 05/02/2024 LGSIL on Pap smear of cervix 05/02/2024 Resolved Ambulatory Problems Diagnosis Date Noted Mild depression (CMS/HCC) 12/26/2022 Osteochondritis dissecans 12/26/2022 Past Medical History: Diagnosis Date Ankle fracture 2006 Anxiety with depression Headache History of abnormal cervical Pap smear 07/03/2022 Family History Problem Relation Name Age of Onset Mental illness Mother No Known Problems Brother Diabetes Maternal Grandfather Nehemiah Milian Diabetes Maternal Grandmother Britney Maicol Social History Tobacco Use Smoking status: Never Smokeless tobacco: Never Substance Use Topics Alcohol use: Not Currently Alcohol/week: 1.0 standard drink of alcohol Drug use: Never Past Surgical History: Procedure Laterality Date [place] TONSILLECTOMY & ADENOIDECTOMY <AGE 11 as a child Allergies Allergen Reactions Amoxicillin Other Reaction(s): Unknown Penicillins Rash Review of Systems: Review of Systems All other systems reviewed and are negative. Objective Physical Exam Constitutional: Appearance: Normal appearance. She is well-developed. Genitourinary: Vulva normal. Cardiovascular: Rate and Rhythm: Normal rate and regular rhythm. Pulmonary: Effort: Pulmonary effort is normal. Breath sounds: Normal breath sounds. Abdominal: General: Bowel sounds are normal. There is no distension. Palpations: Abdomen is soft. Tenderness: There is no abdominal tenderness. There is no guarding or rebound. Musculoskeletal: General: No swelling. Normal range of motion. Right lower leg: No edema. Left lower leg: No edema. Neurological: Mental Status: She is alert and oriented to person, place, and time. Skin: General: Skin is warm and dry. Psychiatric: Mood and Affect: Mood normal. Behavior: Behavior normal. Vitals and nursing note reviewed. Exam conducted with a community development worker present. Vitals: Estimated body mass index is 26.59 kg/m as calculated from the following: Height as of 01/04/24: 5' 5 . Weight as of this encounter: 159 lb 12.8 oz. BP: 100/60 No LMP recorded. Assessment/Plan Encounter Diagnosis: ICD-10-CM 1. LGSIL on Pap smear of cervix R87.612 Pap Smear HPV DNA probe, amplified 2. Encounter for repeat Papanicolaou smear of cervix Z12.4 3. Encounter for control pills maintenance Z30.41 norethindrone-ethinyl estradiol-iron (Lo Loestrin Fe) 1 MG-10 MCG / 10 MCG tablet Repeat Pap: Patient presents today for a repeat pap. Previous pap results were reviewed and noted to be ASCUS. Question regarding previous results were discussed. Repeat Pap was obtained without difficulty. Follow Up: Patient is to return to the office in 6 months for an annual exam. Documented by Fidelia Hobson DO on behalf of: Fidelia Hobson DO documented in this encounter [facility] 03-09-2024 Telephone encounter Note Revised phone message from pt: So basically, I just need a note that states that the leave of absence was extended due to switching medication because the first Zoloft was giving me a ton of side effects and that my medication stopped. I do not even know how long ago, whatever date I was taken off and approved to be taken off and that there are no further concerns going forward so that I can get approved for this life insurance policy. [facility] 03-09-2024 Miscellaneous Notes Revised phone message from pt: So basically, I just need a note that states that the leave of absence was extended due to switching medication because the first Zoloft was giving me a ton of side effects and that my medication stopped. I do not even know how long ago, whatever date I was taken off and approved to be taken off and that there are no further concerns going forward so that I can get approved for this life insurance policy. documented in this encounter [facility] 01-04-2024 History of Presen t illness Narrative Family Medicine Note Subjective: Chief Complaint: Wellness, anxiety follow-up HPI: Cele Blanc presents to the office today for adult wellness exam. Overall the patient reports that she is doing well. She reports that she recently discussed following with her therapist on an as needed basis and would like to discuss stopping her Seroquel. She is up to date on her lab work and other preventative health screenings. Current Outpatient Medications: norethindrone-ethinyl estradiol-iron (Lo Loestrin Fe) 1 MG-10 MCG / 10 MCG tablet, Take 1 tablet by mouth 1 (one) time each day at the same time., Disp: 84 tablet, Rfl: 3 QUEtiapine (SEROquel) 25 MG tablet, Take 1 tablet (25 mg) by mouth at bedtime, Disp: 60 tablet, Rfl: 0 Medical History: Past Medical History: Diagnosis Date Ankle fracture 2005 chipped ankle bone on left ankle Anxiety with depression Headache History of abnormal cervical Pap smear 07/03/2022 Low Grade Squamous Intraepithelial Lesion (LGSIL) Allergies: Allergies Allergen Reactions Amoxicillin Other Reaction(s): Unknown Penicillins Rash Social History: Tobacco Use: Tobacco Use: Low Risk (01/04/2024) Patient History Smoking Tobacco Use: Never Smokeless Tobacco Use: Never Passive Exposure: Not on file Objective: Vitals: 01/04/24 0901 BP: 108/62 BP Location: Left arm Patient Position: Sitting BP Cuff Size: Adult Pulse: 90 Resp: 18 Temp: 97.4 F TempSrc: Temporal SpO2: 100% Weight: 156 lb Height: 5' 5 Physical Exam Vitals and nursing note reviewed. Constitutional: General: She is not in acute distress. Appearance: Normal appearance. She is not ill-appearing. HENT: Head: Normocephalic and atraumatic. Right Ear: External ear normal. Left Ear: External ear normal. Nose: Nose normal. Mouth/Throat: Mouth: Mucous membranes are moist. Eyes: Extraocular Movements: Extraocular movements intact. Pupils: Pupils are equal, round, and reactive to light. Cardiovascular: Rate and Rhythm: Normal rate. Pulses: Normal pulses. Heart sounds: No murmur heard. Pulmonary: Effort: Pulmonary effort is normal. Breath sounds: No wheezing, rhonchi or rales. Abdominal: General: Bowel sounds are normal. There is no distension. Tenderness: There is no abdominal tenderness. Musculoskeletal: General: Normal range of motion. Cervical back: Normal range of motion. Skin: General: Skin is warm and dry. Neurological: General: No focal deficit present. Mental Status: She is alert and oriented to person, place, and time. Psychiatric: Mood and Affect: Mood normal. Behavior: Behavior normal. Judgment: Judgment normal. Assessment: Assess/Plan Problem List Items Addressed This Visit None Visit Diagnoses Adult wellness Wellness performed at office visit today. Height, weight, BMI, problem list, and immunizations records reviewed. Encourage annual vision screenings and semi-annual dental care. Encourage to eat a diet that is rich in plant-based foods and lean protein. Encourage regular periods of exercise. Limit or eliminate junk food and sources of excess calories. Encourage to maintain open communication with provider regarding any changes in condition. Encourage 150 minutes of exercise weekly or amount appropriate to current level of function. Identify family/friend/social support and maintaining emotional connections. Follow-up as discussed. Patient verbalized importance of keeping open communication with health care providers. Anxiety - Primary The patient reports that she has been doing well since her last office visit. She is interested in discontinuing her Seroquel. She is currently at the lowest dosage of the medication so therefore we discussed there is no need to medication taper, that she can just discontinue. We did discuss her contacting the office if she were to need to restart this. She understands this plan and is agreeable. Follow-up: Follow up in about 1 year (around 01/03/2025) for wellness . documented in this encounter [facility] 10-27-2022 Note HNO ID: [id number] Author: Mili Hernandez DPM Service: ? Author [...] plan unless otherwise noted. Mili Hernandez DPM [facility] 10-27-2022 History of Presen t illness Narrative [...] Mili Hernandez DPM documented in this encounter [facility] 09-10-2022 Note HNO ID: [id number] Author: Mili Hernandez DPM Service: ? Author [...] weeks with repeat x-rays. Mili Hernandez DPM [facility] 09-10-2022 Note HNO ID: [id number] Author: Bernardino Huang Service: ? Author Type: Jewelry Cutter Type: Progress Notes Filed: 09/10/2022 8:49 AM [...] Negative for excessive bleeding, clots, bleeding disorders. [facility] 09-10-2022 History of Presen t illness Narrative [...] clots, bleeding disorders. documented in this encounter [facility] 09-08-2022 Miscellaneous Notes Spoke with patient and appointment was made Tangela Carter [employer] ----- Message from Bel aDly sent at 09/08/2022 8:17 AM EDT ----- Regarding: Orthopedics/Figas/Left Foot Fracture appt Subject Line Format: Orthopedics / [Provider Name or Open & Body Part ] / [Issue] Patient has been identified by name and Date of (Y/N): Y Patient: Cele Blanc Date of : 1990 Previous Provider Seen: Mary Body Part(s) Identified: Left Foot Diagnosis/Reason For [...] other than patient: pt Best contact number: [phone] Thank you, Bel Daly September 08, 2022 8:17 AM documented in this encounter [facility] 08-04-2022 Note HNO ID: [id number] Author: Mili Hernandez DPM Service: ? Author [...] plan unless otherwise noted. Mili Hernandez DPM [facility] 08-04-2022 Note HNO ID: [id number] Author: Arelis Luna MA Service: ? Author Type: Cdl Truck Driver Type: Progress Notes Filed: 08/04/2022 5:46 PM [...] bleeding, clots, bleeding disorders. Arelis Luna MA [facility] 08-04-2022 History of Presen t illness Narrative [...] Arelis Luna MA documented in this encounter [facility] 07-31-2022 Miscellaneous Notes Images from the original note were not included. Vinicio Awad MD You 12 minutes ago (1:34 PM) Foot and ankle follow-up with Dr. Norwood/Dr. Hernandez/Dr. Jose Thanks, NJD You Vinicio Awad MD 34 minutes ago (1:12 PM) CR This patient was seen in the ED today. 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 Would you like to see this patient? [...] which facility was the patient seen at: [facility] Was an appointment scheduled (Y/N): n Person calling if other than patient: pt Return call to if other than patient: pt Best contact number: [phone] Thank you, Bel Daly July 31, 2022 10:24 AM documented in this encounter [facility] Evaluation note Diagnosis Closed nondisplaced fracture of fifth metatarsal bone of left foot, initial encounter- Primary [facility] Diagnosis Closed nondisplaced fracture of fifth metatarsal bone of left foot, initial encounter- Primary [facility] Diagnosis Closed nondisplaced fracture of fifth metatarsal bone of left foot with routine healing, subsequent encounter- Primary [facility] noteNo assessment information availableUniversity [facility] Work Phone: Evaluation note* Diagnosis Anxiety- Primary Anxiety state, unspecified Encounter for well adult exam without abnormal findings documented in this encounter [facility]* Diagnosis LGSIL on Pap smear of cervix Encounter for repeat Papanicolaou smear of cervix Encounter for control pills maintenance Surveillance of previously prescribed contraceptive pill documented in this encounter [facility] HealthcareReason for referral (narrative)* Diagnostic Procedure Only (Routine) - Pending Review Specialty Diagnoses / Procedures Referred By Juli t Referred To Contact XR IMAGING Diagnoses Closed nondisplaced fracture of fifth metatarsal bone of left foot, initial encounter Procedures XR FOOT GENERAL 3V AP/LAT/OBL LEFT RADEX FOOT COMPLETE MINIMUM 3 VIEWS Mili Hernandez DPM [address] [place] [address] Xr Imaging Referral ID Status Reason Start Date Expiration Date Visits Requested Visits Authorized [id number] Pending Review Auto-Generat ed Referral 09/10/2022 10/10/2023 1 1 [facility] Diagnostic Procedure Only (Routine) - Pending Review Specialty Diagnoses / Procedures Referred By Juli anderson Referred To Contact XR IMAGING Diagnoses Closed nondisplaced fracture of fifth metatarsal bone of left foot with routine healing, subsequent encounter Procedures XR FOOT GENERAL 3V AP/LAT/OBL LEFT RADEX FOOT COMPLETE MINIMUM 3 VIEWS Mili Hernandez DPM [address] [place] [address] Xr Imaging Referral ID Status Reason Start Date Expiration Date Visits Requested Visits Authorized [id number] Pending Review Auto-Generat ed Referral 11/25/2022 12/25/2023 1 1 [facility] Summary Purpose Family History No Family History Records FoundNo Family History Records FoundNo Family History Records FoundNo Family History Records Found Advance Directives Advance Directive Response Recorded Date/ Time Advance Directives No November 02 10:25am Additional Source Comments Source Comments (unrecognize d section and content) In the event this informatio n is protected by the Federal Confidentiality of Alcohol and Drug Abuse Patient Records regulations: The Federal rules restrict any use of the information to criminally investigate or prosecute any alcohol or drug abuse patient.[facility] the event this information is protected by the Federal Confidentiality of Alcohol and Drug Abuse Patient Records regulations: The Federal rules restrict any use of the information to criminally investigate or prosecute any alcohol or drug abuse patient.[facility] the event this information is protected by the Federal Confidentiality of Alcohol and Drug Abuse Patient Records regulations: The Federal rules restrict any use of the information to criminally investigate or prosecute any alcohol or drug abuse patient.[facility] the event this information is protected by the Federal Confidentiality of Alcohol and Drug Abuse Patient Records regulations: The Federal rules restrict any use of the information to criminally investigate or prosecute any alcohol or drug abuse patient.[facility] the event this information is protected by the Federal Confidentiality of Alcohol and Drug Abuse Patient Records regulations: The Federal rules restrict any use of the information to criminally investigate or prosecute any alcohol or drug abuse patient.[facility] Reason for Visit (unrecogniz ed section and content) Reason Comments Appointment Reason Comments New Reason Comments Follow Up Reason Comments Follow Up Fracture Reason Comments Abnormal Pap Smear INFORMATION SOURCE (unrecogn ized section and content) DATE CREATED AUTHOR 08/06/2022 [facility] DATE CREATED AUTHOR AUTHOR'S ORGANIZ ATION 11/26/2022 [facility] DATE CREATED AUTHOR AUTHOR'S ORGANIZ ATION 11/04/2023 [facility] DATE CREATED AUTHOR AUTHOR'S ORGANIZ ATION 01/05/2024 [facility] EPIC Care Teams (unrecognized sec tion and content) Team Status: Active Member Role Status Dates Bella Ramon APRN SUPPLY CHAIN SPECIALIST-C Primary Care Provider Activ e Team Status: Inactive Member Role Status Dates Bella Ramon APRN SUPPLY CHAIN SPECIALIST-C Primary Care Provider Activ e Start: October 30, 2023 End: October 30, 2023 Fidelia Hobson Attending Provider Active Start: 2023 End: October 30, 2023 Rn Corrections Relationship Specialty Start Date End Date Charlie Barnes MD [address] [place] [address] PCP - General Family Medicine 09/16/22 Wilmer Ruvalcaba NP [address] [place] [address] Nurse Practitioner Family Medicine 09/15/23 Rn Corrections Relationship Specialty Start Date End Date Charlie Barnes MD [address] [place] [address] PCP - General Family Medicine 09/16/22 Wilmer Ruvalcaba NP [address] [place] [address] Nurse Practitioner Family Medicine 09/15/23 Rn Corrections Relationship Specialty Start Date End Date Chralie Barnes MD [address] [place] [address] PCP - General Family Medicine 09/16/22 Wilmer Ruvalcaba NP [address] [place] [address] Nurse Practitioner Family Medicine 09/15/23 Rn Corrections Relationship Specialty Start Date End Date Charlie Barnse MD [address] [place] [address] PCP - General Family Medicine 09/16/22 Wilmer Ruvalcaba NP [address] [place] [address] Nurse Practitioner Family Medicine 09/15/23 Goals (unrecognized section and content) Goals may [...] BE BASED ON THE PRIMARY CLINICAL RECORDS. [employer] provides no warranty or guarantee of the accuracy or completeness of information in this document.
[2024-05-12 15:08] LABS: HPV Aptima Positive (Negative); Pap IG (Image Guided) Note (.)
== END 2024-05-02 21:07 | disposition home or self-care (01) ==
LOC: LAB 21:06
PROVIDERS: Visit Provider Obstetrics & Gynecology
DX: R87.612 Low grade squamous intraepithelial lesion on cytologic smear of cervix (LGSIL) (principal)
CPT/HCPCS: 87624; 88175

== ENCOUNTER 2024-11-02 19:46 | Outpatient (REF) | payer BC, SELFPAY ==
--- OUTSIDE RECORDS SUMMARY | 2024-11-02 14:20 | XMS_ITS | Encounter Summary ---
Author Organization [facility] Address [address] [place] [address] Care Team Providers Care Strategy Lead Name Role Phone Charlie Barnes MD Primary Care Provider [phone] Citlalli Ruvalcaba IMAGING SCIENCE PROFESSOR Unavailable [phone] Reason for Visit * Reason Comments Abnormal Pap Smear Encounter Details Date Type Department Care Team (Late st Contact Info) Description 11/02/2024 2:20 PM EDT Procedure Visit [facility] [address] [place] [phone] Moi Hobson, DO [address] [place], [facility]11 LGSIL on Pap smear of cervix; Insulin resistance Social History Tobacco Use Types Packs/Day Years Used Date Smoking Tobacco: Never Smokeless Tobacco: Never Alcohol Use Standard Drinks/Week Comments Not Currently 1 (1 standard drink = 0.6 oz pur e alcohol) Social Connection and Isolat ion Panel [NHANES] Answer Date Recorded In a typical week, how many times do you talk on the phone with family, friends, or neighbors? More than three times a week 12/31/2022 How often do you get togethe r with friends or relatives? More than three times a week 12/31/2022 How often do you attend chur ch or faith services? Never 12/31/2022 Active Member of Clubs or Organizations Not on f ile 12/31/2022 Attends Club or Organization Meetings Not on nestor e 12/31/2022 Marital Status Not on file 12/31/2022 PHQ-2 Answer Date Recorded Patient Health Questionnaire-2 Score 0 01/04/2024 [place] of Occupat ional Health - Occupational Stress Questionnaire Answer Date Recorded Do you feel stress - tense, restless, nervous, or anxious, or unable to sleep at night because your mind is troubled all the time - these days? Very much 12/31/2022 Exercise Vital Sign Answer Date Recorde d On average, how many days pe r week do you engage in moderate to strenuous exercise (like a brisk walk)? 5 days 12/31/2022 On average, how many minutes do you engage in exercise at this level? 40 min 12/31/2022 Comments No Sex and Gender Information Value Date Recorded Sex Assigned at Not on file Legal Sex Female 8:23 PM EDT Gender Identity Not on file Sexual Orientation Not on file documented as of this encounter Last Filed Vital Signs Vital Sign Reading Time Taken Comments Blood Pressure 100/66 11/02/2024 2:51 PM EDT Pulse - - Temperature - - Respiratory Rate - - Oxygen Saturation - - Inhaled Oxygen Concentration - - Weight 84.3 kg (185 lb 12.8 oz) 11/02/2024 2:51 PM EDT Height - - Body Mass Index 30.92 01/04/2024 9:01 AM EDT documented in this encounter Plan of Treatment Upcoming Encounters Date Type Department Care Team (Late st Contact Info) Description 05/17/2025 1:00 PM EST Office Visit [facility] OB [address] [address] [place] [address] Moi Hobson DO [address] [place] [address] Scheduled Orders Name Type Priority Associated Diagnoses Order Schedule Pap Smear Pathology and Cytology Routine LGSIL on Pap smear of cervix Ordered: 11/02/2024 HPV DNA probe, amplified Microbiology Routine LGSIL on Pap smear of cervix Ordered: 11/02/2024 documented as of this encounter Visit Diagnoses Diagnosis LGSIL on Pap smear of cervix Insulin resistance Other abnormal glucose documented in this encounter Care Teams Strategy Lead Relationship Specialty Start Date End Date Charlie Barnes MD [address] [place] [address] PCP - General Family Medicine 09/16/22 Citlalli Ruvalcaba NP [address] [place] [address] Nurse Practitioner Family Medicine 09/15/23 documented as of this encounter
--- OUTSIDE RECORDS SUMMARY | 2024-11-02 19:49 | XMS_ITS | Encounter Summary ---
Author Organization [facility] Address [address] [place] [address] Care Team Providers Care Counter Intelligence Name Role Phone Charlie Barnes MD Primary Care Provider [phone] Citlalli Ruvalcaba ACOUSTICAL INSTALLER Unavailable [phone] Citlalli Ruvalcaba ACOUSTICAL INSTALLER Unavailable [phone] Encounter Details Date Type Department Care Team (Late st Contact Info) Description 11/03/2023 Abstract [facility] OB [address] [place] [address] [place] [address] Carleen Srinivasan LPN Social History Tobacco Use Types Packs/Day Years [...] often do you attend chur ch or mormonism services? Never 12/31/2022 Active Member of Clubs or Organizations Not on f ile 12/31/2022 Attends Club or Organization Meetings Not on nestor e 12/31/2022 Marital Status Not on file 12/31/2022 PHQ-2 Answer Date Recorded Patient Health Questionnaire-2 Score 0 10/07/2023 [facility] - Occupational Stress Questionnaire Answer Date Recorded [...] on file documented as of this encounter Plan of Treatment Upcoming Encounters Date Type Department Care Team (Late st Contact Info) Description 05/17/2025 1:00 PM EST Office Visit [facility] OB [address] [facility] [address] [place] [phone] Moi Hobson DO [address] [facility] [address] [place], [place] [id number] documented as of this encounter Visit Diagnoses Not on filedocumented in this encounter Care Teams Counter Intelligence Relationship Specialty Start Date End Date Charlie Barnes MD [address] [place] [address] PCP - General Family Medicine 09/16/22 Citlalli Ruvalcaba NP [address] [place] [address] PCP - [facility] 04/10/24 Citlalli Ruvalcaba NP [address] [place] [address] Nurse Practitioner Family Medicine 09/15/23 documented as of this encounter
--- OUTSIDE RECORDS SUMMARY | 2024-11-02 19:49 | XMS_ITS | Clinical Summary ---
Author Organization [facility] Address [address] [place] [address] Care Team Providers Care Airport Operations Manager Name Role Phone Charlie Barnes MD Primary Care Provider [phone] Citlalli Ruvalcaba DENTAL TECHNICIAN METAL Unavailable [phone] Allergies Active Allergy Reactions Criticality Noted Date Comments Amoxicillin 12/28/2022 Other Reaction(s): Unknown Penicillins Rash Low 03/14/2019 Medications norethindrone-et hinyl estradiol-iron (Lo Loestrin Fe) 1 MG-10 MCG / 10 MCG tabletIndication s:Encounter for control pills maintenance Take 1 tablet by mouth Daily 90 tablet 2 05/02/2024 Active metFORMIN XR (Glucophage-XR) 500 MG 24 hr tabletIndication s:Insulin resistance Take 1 tablet (500 mg) by mouth in the evening. Take with meals Do not crush, chew, or split. 30 tablet 11 11/02/2024 Active Active Problems Problem Noted Date Diagnosed Date Encounter for repeat Papanicolaou smear of cervi x 05/02/2024 LGSIL on Pap smear of cervix 05/02/2024 Resolved Problems Problem Noted Date Diagnosed Date Resolved Date Mild depression 12/26/2022 10/07/2023 Osteochondritis dissecans 12/26/2022 Encounters Date Type Department Care Team Description 11/02/2024 2:20 PM EDT Procedure Visit [facility] OB [address] [place] [address] Moi Hobson DO LGSIL on Pap smear of cervix; Insulin resistance 11/02/2024 Bamboo flowsheet [facility] [address] [place] [address] Moi Hobson, from Last 3 Months Family History Medical History Relation Name Comments No Known Problems Brother Diabetes Maternal Grandfather Nehemiah Milian Diabetes Maternal Grandmother Britney Milian Mental illness Mother Relation Name Status Comments Brother Father Alive Maternal Grandfather Nehemiah Milian Maternal Grandmother Britney Milian Mother Alive Social History Tobacco Use Types Packs/Day Years Used Date Smoking Tobacco: Never Smokeless Tobacco: Never Tobacco Cessation:Counseling Given: Not Answered Alcohol Use Standard Drinks/Week Comments Not Currently [...] 12/31/2022 How often do you attend chur or holiness services? Never 12/31/2022 Active Member of Clubs or Organizations Not on f ile 12/31/2022 Attends Club or Organization Meetings Not on nestor e 12/31/2022 Marital Status Not on file 12/31/2022 PHQ-2 Answer Date Recorded Patient Health Questionnaire-2 Score 0 01/04/2024 [facility] - Occupational Stress Questionnaire Answer [...] on file Sexual Orientation Not on file Last Filed Vital Signs Vital Sign [place] Time Taken Comments Blood Pressure 100/66 11/02/2024 2:51 PM EDT Pulse 90 01/04/2024 9:01 AM EDT Temperature 36.3 C (97.4 F) 01/04/2024 9:01 AM EDT Respiratory Rate 18 01/04/2024 9:01 AM EDT Oxygen Saturation 100% 01/04/2024 9:01 AM EDT Inhaled Oxygen Concentration - - Weight 84.3 kg (185 lb 12.8 oz) 11/02/2024 2:51 PM EDT Height 165.1 cm (5' 5 ) 01/04/2024 9:01 AM EDT Body Mass Index 30.92 01/04/2024 9:01 AM EDT Plan of Treatment Upcoming Encounters Date Type Department Care Team (Late st Contact Info) Description 05/17/2025 1:00 PM EST Office Visit [facility] [address] [place] [address] Moi Hobson, [address] [facility] [place] [address] Health Maintenance Due Date Last Done Comments Influenza Vaccine (Season Ended) 2025 Pap Smear 05/02/2027 05/02/2024, 05/0 10/2023, 07/03/2022 Cervical Cancer Screening 07/03/2027 HPV/Cotest 07/03/2027 07/03/2022 Procedures Procedure Name Priority Date/Time Associated Diagnosis Comments PAP SMEAR Routine 05/02/2024 12:00 AM EST from Last 3 Months or Most Recently Relevant to Health Maintenance Results * Pap Smear (05/02/2024 12:00 AM EST) Swab Cervical swab / Unknown us Moi Hobson DO LAB CYTOLOGY ORDERABLES Final Re sult EXTERNAL LAB from Last 3 Months or Most Recently Relevant to Health Maintenance Insurance BCBS Care Teams Airport Operations Manager Relationship Specialty Start Date End Date Charlie Barnes MD [address] [place] [address] PCP - General Family Medicine 09/16/22 Citlalli Ruvalcaba NP [address] [place] [address] Nurse Practitioner Family Medicine 09/15/23
--- OUTSIDE RECORDS SUMMARY | 2024-11-02 19:49 | XMS_ITS | Encounter Summary ---
Author Organization [facility] Address [address] [place] [address] Care Team Providers Care Electric Locomotive Firer/Fireman Name Role Phone Charlie Barnes MD Primary Care Provider [phone] Citlalli Ruvalcaba PREVOCATIONAL/REHABILITATION COUNSELOR Unavailable [phone] Citlalli Ruvalcaba PREVOCATIONAL/REHABILITATION COUNSELOR Unavailable [phone] Encounter Details Date Type Department Care Team (Late st Contact Info) Description 09/17/2023 Abstract [facility] [address] [place] [address] Citlalli Ruvalcaba PREVOCATIONAL/REHABILITATION COUNSELOR [address] [place] [address] Social History Tobacco Use Types Packs/Day Years Used Date Smoking Tobacco: Never Smokeless Tobacco: Never Alcohol Use Standard Drinks/Week Comments Yes 1 (1 standard drink = 0.6 oz [...] often do you attend chur ch or anabaptist services? Never 12/31/2022 Active Member of Clubs or Organizations Not on f ile 12/31/2022 Attends Club or Organization Meetings Not on nestor e 12/31/2022 Marital Status Not on file 12/31/2022 PHQ-2 Answer Date Recorded Patient Health Questionnaire-2 Score 0 01/01/2023 [place] of Occupat ional Health - Occupational Stress [...] EST Office Visit [facility] OB [address] [facility] [facility] [place] [phone] Moi Hobson DO [address] [facility] [place] [address] documented as of this encounter Visit Diagnoses Not on filedocumented in this encounter Care Teams Electric Locomotive Firer/Fireman Relationship Specialty Start Date End Date Charlie Barnes MD [address] [place] [address] PCP - General Family Medicine 09/16/22 Citlalli Ruvalcaba NP [address] [place] [address] [facility] 04[facility]10/24 Citlalli Ruvalcaba NP [address] [place] [address] Nurse Practitioner Family Medicine 09/15/23 documented as of this encounter
--- OUTSIDE RECORDS SUMMARY | 2024-11-02 19:49 | XMS_ITS | Encounter Summary ---
Author Organization [facility] Address [address] [place] [address] Care Team Providers Care Recruitment Consultant Name Role Phone Charlie Barnes MD Primary Care Provider [phone] Citlalli Ruvalcaba TEACHER EMOTIONALLY IMPAIRED Unavailable [phone] Citlalli Ruvalcaba TEACHER EMOTIONALLY IMPAIRED Unavailable [phone] Encounter Details Date Type Department Care Team (Late st Contact Info) Description 10/29/2023 Abstract [facility] OB [address] [place] [phone] Moi Hobson DO [address] [place], [place] [id number] Social History Tobacco Use Types Packs/Day Years [...] often do you attend chur ch or uatsdin services? Never 12/31/2022 Active Member of Clubs or Organizations Not on f ile 12/31/2022 Attends Club or Organization Meetings Not on nestor e 12/31/2022 Marital Status Not on file 12/31/2022 PHQ-2 Answer Date Recorded Patient Health Questionnaire-2 Score 0 10/07/2023 [facility] - Occupational Stress Questionnaire Answer Date Recorded [...] EST Office Visit [facility] OB [address] [facility] [place] [phone] Moi Hobson DO [address] [facility] [place] [address] documented as of this encounter Visit Diagnoses Not on filedocumented in this encounter Care Teams Recruitment Consultant Relationship Specialty Start Date End Date Charlie Barnes MD [address] [place] [address] PCP - General Family Medicine 09/16/22 Citlalli Ruvalcaba NP [address] [place] [address] PCP - [employer] 04/10/24 Citlalli Ruvalcaba NP [address] [place] [address] Nurse Practitioner Family Medicine 09/15/23 documented as of this encounter
--- OUTSIDE RECORDS SUMMARY | 2024-11-02 19:49 | XMS_ITS | Encounter Summary ---
Author Organization [facility] Address [address] [place] [address] Care Team Providers Care Bluing Oven Tender Name Role Phone Charlie Barnes MD Primary Care Provider [phone] Citlalli Ruvalcaba CORE EXTRUDER Unavailable Citlalli Ruvalcaba CORE EXTRUDER Unavailable [phone] Encounter Details Date Type Department Care Team (Late st Contact Info) Description 09/23/2023 Orders Only [facility] [address] [place] [address] Citlalli Ruvalcaba CORE EXTRUDER [address] [place] [address] Social History Tobacco Use Types Packs/Day Years [...] often do you attend chur ch or adventist services? Never 12/31/2022 Active Member of Clubs or Organizations Not on f ile 12/31/2022 Attends Club or Organization Meetings Not on nestor e 12/31/2022 Marital Status Not on file 12/31/2022 PHQ-2 Answer Date Recorded Patient Health Questionnaire-2 Score 0 01/01/2023 [facility]at ional Health - Occupational Stress [...] EST Office Visit [facility] OB [address] [place] [address] Moi Hobson DO [address] [facility] [place] [address] documented as of this encounter Visit Diagnoses Not on filedocumented in this encounter Care Teams Bluing Oven Tender Relationship Specialty Start Date End Date Charlie Barnes MD [address] [place] [address] PCP - General Family Medicine 09/16/22 Citlalli Ruvalcaba NP [address] [place] [address] [facility] 04/10/24 Citlalli Ruvalcaba NP [address] [place] [address] Nurse Practitioner Family Medicine 09/15/23 documented as of this encounter
--- OUTSIDE RECORDS SUMMARY | 2024-11-02 19:49 | XMS_ITS | Clinical Summary ---
Author Organization [facility] Address [address] [place] [address] Phone [email or web address] Care Team Providers Care River Captain Name Role Phone Unavailable Primary Care Provider Unavailabl e Social History Tobacco Use Types Packs/Day Years Used Date Smoking Tobacco: Never Assessed Intimate Partner Violence Answer Date R ecorded Insults You Not on file 08/22/2020 Threatens You Not on file 08/22/2020 Screams at You Not on file 08/22/2020 Physically Hurt Not on file 08/22/2020 Intimate Partner Violence Score Not on file 08/22/2020 Stress Answer Date Recorded Stress in your Life 0 06/22/2020 Dealing with Stress Not on file 06/22/2020 Comments Unknown Sex and Gender Information Value Date Recorded Sex Assigned at Not on file Legal Sex Female 10:45 AM CDT Gender Identity Not on file Sexual Orientation Not on file Last Filed Vital Signs Vital Sign [place] Time Taken Comments Blood Pressure 116/66 01/28/2019 12:00 AM CDT Pulse - - Temperature - - Respiratory Rate - - Oxygen Saturation - - Inhaled Oxygen Concentration - - Weight 76.2 kg (168 lb) 01/28/2019 12:00 AM CDT Height 165.1 cm (5' 5 ) 01/28/2019 12:00 AM CDT Body Mass Index 27.96 01/28/2019 12:00 AM CDT Plan of Treatment Not on file
--- OUTSIDE RECORDS SUMMARY | 2024-11-02 19:49 | XMS_ITS | Encounter Summary ---
Author Organization [facility] Address [address] [place] [address] Care Team Providers Care Milling Machinist Name Role Phone Charlie Barnes MD Primary Care Provider [phone] Citlalli Ruvalcaba PROPOSAL EDITOR Unavailable [phone] Citlalli Ruvalcaba PROPOSAL EDITOR Unavailable [phone] Encounter Details Date Type Department Care Team (Late st Contact Info) Description 05/19/2024 Orders Only [facility] [address] [place] [address] Aaliyah Lawler LPN [address] [employer] [place] [id number] Social History Tobacco Use Types Packs/Day Years [...] Recorded Patient Health Questionnaire-2 Score 0 01/04/2024 [facility] of Occupat ional Health - Occupational Stress [...] 1:00 PM EST Office Visit [facility] [address] [place] [address] Moi Hobson DO [address] [place] [address] [place] [address] documented as of this encounter Procedures Procedure Name Priority Date/Time Associated Diagnosis Comments PAP SMEAR Routine 05/02/2024 12:00 AM EST documented in this encounter Results * Pap Smear (05/02/2024 12:00 AM EST) Swab Cervical swab / Unknown Moi Hobson DO LAB CYTOLOGY ORDERABLES Final Re sult EXTERNAL LAB documented in this encounter Visit Diagnoses Not on filedocumented in this encounter Care Teams Milling Machinist Relationship Specialty Start Date End Date Charlie Barnes MD [address] [place] [address] PCP - General Family Medicine 09/16/22 Citlalli Ruvalcaba PROPOSAL EDITOR [address] [place] [address] PCP - [place] [employer] 04/10/24 Citlalli Ruvalcaba NP [address] [place] [address] Nurse Practitioner Family Medicine 09/15/23 documented as of this encounter
--- OUTSIDE RECORDS SUMMARY | 2024-11-02 19:49 | XMS_ITS | Encounter Summary ---
Author Organization [facility] Address [address] [place] [address] Care Team Providers Care Iv Therapy Nurse Name Role Phone Charlie Barnes MD Primary Care Provider [phone] Citlalli Ruvalcaba CD REACTOR OPERATOR Unavailable [phone] Citlalli Ruvalcaba CD REACTOR OPERATOR Unavailable [phone] Encounter Details Date Type Department Care Team (Late st Contact Info) Description 09/01/2023 Abstract [facility] [address] [place] [address] Citlalli Ruvalcaba CD REACTOR OPERATOR [address] [place] [address] Social History Tobacco Use Types [...] often do you attend chur ch or voodoo services? Never 12/31/2022 Active Member of Clubs or Organizations Not on f ile 12/31/2022 Attends Club or Organization Meetings Not on nestor e 12/31/2022 Marital Status Not on file 12/31/2022 PHQ-2 Answer Date Recorded Patient Health Questionnaire-2 Score 0 01/01/2023 [place] of Occupat ional Health - Occupational Stress [...] EST Office Visit [facility] OB [address] [facility] [place] [address] Moi Hobson DO [address] [facility] [place] [address] documented as of this encounter Visit Diagnoses Not on filedocumented in this encounter Care Teams Iv Therapy Nurse Relationship Specialty Start Date End Date Chalrie Barnes MD [address] [place] [address] PCP - General Family Medicine 09/16/22 Citlalli Ruvalcaba NP [address] [place] [address] [facility] Citlalli Ruvalcaba NP [address] [place] [address] Nurse Practitioner Family Medicine 09/15/23 documented as of this encounter
--- OUTSIDE RECORDS SUMMARY | 2024-11-02 19:49 | XMS_ITS | Encounter Summary ---
Author Organization [facility] Address [address] [place] [address] Care Team Providers Care Operations Management Trainee Name Role Phone Charlie Barnes MD Primary Care Provider [phone] Citlalli Ruvalcaba CIVIL PROCESS SERVER Unavailable [phone] Citlalli Ruvalcaba CIVIL PROCESS SERVER Unavailable [phone] Encounter Details Date Type Department Care Team (Late st Contact Info) Description 11/04/2023 Abstract [facility] OB [address] [place] [phone] Bella Oliveira LPN [address] [place] [address] Social History Tobacco Use Types Packs/Day Years [...] often do you attend chur ch or oriental orthodox services? Never 12/31/2022 Active Member of Clubs or Organizations Not on f ile 12/31/2022 Attends Club or Organization Meetings Not on nestor e 12/31/2022 Marital Status Not on file 12/31/2022 PHQ-2 Answer Date Recorded Patient Health Questionnaire-2 Score 0 10/07/2023 [facility] - Occupational Stress Questionnaire Answer Date Recorded [...] EST Office Visit [facility] OB [address] [facility] [place] [address] Moi Hobson DO [address] [facility] [place] [address] documented as of this encounter Visit Diagnoses Not on filedocumented in this encounter Care Teams Operations Management Trainee Relationship Specialty Start Date End Date Charlie Barnes MD [address] [place] [address] PCP - General Family Medicine 09/16/22 Citllali Ruvalcaba NP [address] [place] [address] PCP - [employer] 04/10/24 Citlalli Ruvalcaba NP [address] [place] [address] Nurse Practitioner Family Medicine 09/15/23 documented as of this encounter
--- OUTSIDE RECORDS SUMMARY | 2024-11-02 19:49 | XMS_ITS | Encounter Summary ---
Author Organization [facility] Address [address] [place] [address] Care Team Providers Care Data Security Analyst Name Role Phone Charlie Barnes MD Primary Care Provider [phone] Citlalli Ruvalcaba INSTRUCTIONAL MATERIALS DIRECTOR Unavailable [phone] Encounter Details Date Type Department Care Team (Late st Contact Info) Description 11/02/2024 Bamboo flowsheet [facility] [address] [place] [address] Moi Hobson, DO [address] [place], [facility] Social History Tobacco Use Types Packs/Day Years [...] often do you attend chur ch or hindu services? Never 12/31/2022 Active Member of Clubs or Organizations Not on f ile 12/31/2022 Attends Club or Organization Meetings Not on nestor e 12/31/2022 Marital Status Not on file 12/31/2022 PHQ-2 Answer Date Recorded Patient Health Questionnaire-2 Score 0 01/04/2024 [facility] - Occupational Stress Questionnaire Answer Date [...] EST Office Visit [facility] [address] [place] [id number] Moi Hobson, [address] [facility] [address] [place] [address] documented as of this encounter Visit Diagnoses Not on filedocumented in this encounter Care Teams Data Security Analyst Relationship Specialty Start Date End Date Charlie Barnes MD [address] [place] [address] PCP - General Family Medicine 09/16/22 Citlalli Ruvalcaba NP [address] [place] [address] Nurse Practitioner Family Medicine 09/15/23 documented as of this encounter
--- OUTSIDE RECORDS SUMMARY | 2024-11-02 19:49 | XMS_ITS | Encounter Summary ---
Author Organization [facility] Address [address] [place] [address] Care Team Providers Care Solid Propellant Processor Name Role Phone Charlie Barnes MD Primary Care Provider [phone] Citlalli Ruvalcaba LATEX SPOOLER Unavailable [phone] Citlalli Ruvalcaba LATEX SPOOLER Unavailable [phone] Encounter Details Date Type Department Care Team (Late st Contact Info) Description 09/03/2023 Abstract [facility] [address] [place] [id number] Citlalli Ruvalcaba LATEX SPOOLER [address] [place] [address] Social History Tobacco Use Types [...] often do you attend chur ch or worship services? Never 12/31/2022 Active Member of Clubs or Organizations Not on f ile 12/31/2022 Attends Club or Organization Meetings Not on nestor e 12/31/2022 Marital Status Not on file 12/31/2022 PHQ-2 Answer Date Recorded Patient Health Questionnaire-2 Score 0 01/01/2023 [facility] [place] [facility] - Occupational Stress [...] EST Office Visit [facility] [address] [place] [id number] Moi Hobson DO [address] [place] [address] documented as of this encounter Visit Diagnoses Not on filedocumented in this encounter Care Teams Solid Propellant Processor Relationship Specialty Start Date End Date Charlie Barnes MD [address] [place] [address] PCP - General Family Medicine 09/16/22 Citlalli Ruvalcaba NP [address] [place] [address] [facility] Citlalli Ruvalcaba NP [address] [place] [address] Nurse Practitioner Family Medicine 09/15/23 documented as of this encounter
--- OUTSIDE RECORDS SUMMARY | 2024-11-02 20:08 | XMS_ITS | CCD ---
Author Organization [facility] Care Team Providers Care Financial Reporting Accountant Name Role Phone Unavailable Primary Care Provider Unavaildouglas e CHEPE, DR HAWKINS Primary Care Unavailable GEOVANNI, DR EH White Attending Unavailable WEST, DR EH White Admitting Unavailable WEST, DR EH White Consulting Unavailable WEST, DR EH White Attending Unavailable CHEPE, DR HAWKINS Primary Care Unavailable WEST, DR EH White Admitting Unavailable WEST, DR EH White Consulting Unavailable MOI HOBSON Consulting Unavailable MOI HOBSON Attending Unavailable CHEPE, DR HAWKINS Primary Care Unavailable MOI HOBSON Admitting Unavailable LEONEL COOPER Attending Unavailable MACKENZIE HERNANDEZ Attending Unavailable MACKENZIE HERNANDEZ Attending Unavailable MACKENZIE EHRNANDEZ Attending Unavailable NEAL Ramon Primary Care Provider [phone] Moi Hobson Attending Provider Bella Ramon Primary Care Unavailable Moi Hobson Attending Unavailable Saman Hobsony Admitting Unavailable Charlie Barnes MD Primary Care Provider Citlalli Ruvalcaba NP Unavailable CITLALLI RUVALCABA Attending Unavailable RIO MEI Attending Unavailable CITLALLI RUVALCABA Attending Unavailable CITLALLI RUVALCABA Attending Unavailable MOI HOBSON Attending Unavailable CITLALLI RUVALCABA Attending Unavailable MOI HOBSON Attending Unavailable PHYSICIAN, NONE Primary Care Unavailable DEBBIE HUYNH MD Attending Unavaila ble Allergies Allergy Classification Reported Allergen(s) Allergy Type Date of Onset Reaction(s) Facility penicillAMINE (2 sources) penicillAMINE; Translations: [penicillamine] Drug Allergy 10-23-2020 [facility] Penicillins (antibiotic) (2 sources) Amoxicillin; Translations: [amoxicillin] Drug Allergy 10-23-2020 [facility] (6 sources) Penicillins; Translations: [PENICILLINS] Drug Allergy 07-31-2022 Rash [facility] (12 sources) Amoxicillin; Translations: [AMOXICILLIN] Drug Allergy 08-04-2022 Rash [facility] (7 sources) Penicillins Drug Allergy 03-14-2019 Rash [facility] Medications Current Medications Medication Drug Class(es) [...] Ethinyl Estradiol / Ferrous fumarate / Norethindrone (12 sources) Estrogen Start: 05-02-2024 take 1 tablet by mouth once daily norethindrone-ethi nyl estradiol-iron (Lo Loestrin Fe) 1 MG-10 MCG / 10 MCG tablet Indications: Encounter for control pills maintenance Take 1 tablet by mouth Daily 90 tablet 2 05/02/2024 Active Start: 05-02-2024 End: 07-31-2024 take 1 tablet by mouth once daily norethindrone-ethinyl estradiol-iron (Lo Loestrin Fe) [...] Problem Classification Problem Date Documented Date Episodic/Chronic Acute bronchitis (2 sources) Acute bronchitis, unspecified; Translations: [Acute bronchitis, unspecified] Onset: 08-10-2024 Episodic Administrative/social admission (1 source) Other problems related to medical facilities and other health care; Translations: [Other problems related to medical facilities and other health care] Onset: 08-10-2024 Episodic Allergic reactions (1 source) Allergy status to penicillin; Translations: [Allergy status to penicillin] Onset: 08-10-2024 Episodic Anxiety disorders (2 sources) Anxiety; Translations: [Anxiety disorder, unspecified] 01-04-2024 Chronic Contraceptive and procreative management (1 source) Oral [...] [ENC SCREENING HUMAN PAPILLOMAVIRUS] Onset: 07-07-2022 Episodic Thyroid disorders (1 source) Nontoxic goiter, unspecified; Translations: [Nontoxic goiter, unspecified] Onset: 08-10-2024 Chronic Past or Other Problems Problem Classification Problem Date Documented Date Episodic/Chronic Cancer of cervix (5 sources) Low grade squamous intraepithelial lesion on cervical Papanicolaou smear; Translations: [Low grade squamous intraepithelial lesion on cytologic smear of cervix (LGSIL)] Onset: 05-02-2024 05-02-2024 Episodic Mood disorders (7 sources) Mild depression; Translations: [Mild depression] Onset: 12-26-2022 Resolved: 10-07-2023 10-07-2023 Chronic Other bone disease and musculoskeletal deformities (7 sources) Osteochondritis dissecans; 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] Onset: 12-26-2022 Resolved: 01-04-2024 01-04-2024 Chronic Other screening for suspected conditions (not mental disorders or infectious disease) (9 sources) Encounter for screening for malignant neoplasm of cervix; Translations: [Patient encounter status] Onset: 07-03-2022 Episodic Results Test Name Value Interpretation Reference Range Facility XR CHEST 2 VIEWSon XR CHEST 2 VIEWS ORIGINAL EXAMINATION: TWO XRAY VIEWS OF THE CHEST08/10/2024 8:43 am XR Chest two views COMPARISON: None HISTORY: ORDERING SYSTEM PROVIDED HISTORY: Reason for Exam: Cough/SOB, FINDINGS: No suspicious nodule, acute infiltrate, consolidation,mass, pneumothorax, pleural fluid, or vascular congestion is seen. Heart size and mediastinal contours are within normal limits for age and projection. No acute skeletal abnormality. There is increased retrosternal clear space that can be a sign of lung hyperexpansion. IMPRESSION: No acute cardiopulmonary process. Interpreted by: Jabari De La Cruz MD Preliminary Report By: Jabari De La Cruz MD Electronically signed By Jabari De La Cruz MD Dictated Date: 08/10/2024 8:51:50 AM Prelim Date: 08/10/2024 8:52:21 AM Sign Date: 08/10/2024 8:52:21 AM Ordering Provider: DEBBIE VALERO [facility] MAIN PAP IG, APT HPV RFX 16/18,45 on 05-12-2024 HPV APTIMA Positive Abnormal Negative [facility] Comment on above: This nucleic acid am plification test detects fourteen high- risk HPV types (16,18,31,33,35,39,45,51,52,56,58,59,66,68) without differentiation. Performed at: - [address] [id number] Customer Support Advisor: Kylie Malloy MD, Phone: [phone] Performed at: - [facility] [id number] Customer Support Advisor: Kylie Malloy MD, Phone: [phone] Interpretation and review of laboratory results Abnormal [facility] PAP IG (IMAGE GUIDED) Note Abnormal . [facility] Comment on above: TESTS RESULT FLAG UN ITS REF RANGE LAB Clinician Provided Cytology Information Source.............Cervix;Endocervix No. of containers..01 ThinPrep Vial DIAGNOSIS: [A] 01 EPITHELIAL CELL ABNORMALITY. LOW GRADE SQUAMOUS INTRAEPITHELIAL LESION (LSIL). Specimen adequacy: 01 Satisfactory for evaluation. Endocervical and/or squamous metaplastic cells (endocervical component) are present. Performed by: 02 Chester Guillen, Gun Stock Maker (ASCP) Electronically si... 01 Glenda Chavez MD, Pathologist . 01 Pathologist ICD10: 01 R87.612 Note: Note 01 The Pap smear is a screening test designed to aid in the detection of premalignant and malignant conditions of the uterine cervix. It is not a diagnostic procedure and should not be used as the sole means of detecting cervical cancer. Both false-positive and false-negative reports do occur. Test Methodology: Note 01 This liquid based ThinPrep(R) pap test was screened with the use of an image guided system. HPV Genotype Reflex Note 01 Criteria not met, HPV Genotype not performed. FLAG LEGEND: L-Low Normal,H-High Normal,LL-Alert Low,HH-Alert High <-Panic Low,>-Panic High,A-Abnormal,AA-Critical Abnormal Performed at: 01 WB [facility] [address] [address] Kylie Malloy MD, 02 KWCYT [facility] [place] [facility] [address] [place] [address] Johnny Aguilar MD, BRUSH-SPATULA CERVIX ENDOCERVIX [facility] Jan 10-29-2023 L Specimen: [id number] Received: 10/30/23 Status: ISIDRO Mccollum Num: [id number] Spec Type: Surgical Subm Dr: Moi Hobson Tissues: A Endometrium - Biopsy (EMB) Procedures: HE/2, Gross/Micro L4 Age/ Patient Sex Location Account Attending Physician AlecRay 33/F [facility] [id number] Moi Hobson SPEC NUM: [id number] RECD: 10/30/23 STATUS: ISIDRO MCCOLLUM NUM: [id number] TAMARA: 10/29/[address]: Moi Hobson ENTERED: 10/30/[address]: Leo,Lab SPEC [...] on file) Irena Hirsch MD 11/03/23 1558 -------- Pathological Diagnosis Endometrium, biopsy: Minute fragments of cervical mucosa with koilocytic atypia, consistent with HPV infection. No endometrium is identified. -------- Specimen: [id number] Received: 10/30/23 Status: ISIDRO Mccollum Num: [id number] Spec Type: Surgical Subm Dr: Moi Hobson Tissues: A Endometrium - Biopsy (EMB) Procedures: DESTINEY/Konstantin, El/Micro L4 -------- Patient: Ray Blanc [id number] (Continued) -------- Specimen: [id number] Received: 10/30/23 (Continued) Signed (signature on file) Irena Hirsch MD 11/02/23 1408 -------- Specimen: [id number] Received: 10/30/23 Status: ISIDRO Mccollum Num: [id number] Spec Type: Surgical Subm Dr: Moi Hobson Tissues: A Endometrium - Biopsy (EMB) Procedures: HE/Konstantin, Gross/Micro L4 -------- Patient: AlecRay [id number] (Continued) -------- Specimen: [id number] Received: 10/30/23 (Continued) Clinical Information LSIL, positive HPV Gross Description Received in formalin labeled with the patient's name, date of and endometrium (per requisition) are multiple minute wan tissue fragments measuring in aggregate 0.3 x 0.2 x 0.1 cm, entirely submitted in A1. CPT Codes 78548 -------- -------- Specimen: [id number] Received: 10/30/231706 Status: ISIDRO Mccollum Num: [id number] Spec Type: Surgical Subm Dr: Moi Hobson Tissues: A Endometrium - Biopsy (EMB) Procedures: El LOPES/Julisa L4 -------- Patient: Ray Blanc [id number] (Continued) -------- Signed (signature on file) Irena Hirsch MD 11/02/[address] [facility] Rosie 10-27-2022 CNOV Office Visit (AGHWG1 ) RAY BLANC ([id number]) 1990 F [place] Date Time Provider Department 10/27/22 11:15 AM MACKENZIE HERNANDEZ AGHWG1 During your visit today, we recorded the following information about you: Respiration Weight Height 18/minute 74.8 kg 1.651 m Mackenzie Hernandez DPM 11/25/2022 4:23 PM Signed PODIATRY [...] No hyperkeratotic tissue. No ecchymosis or erythema. Musculoskeletal/Ortho paedic: General foot morphology: Rectus medial longitudinal arch [...] resident's assessment and plan unless otherwise noted. Mackenzie Hernandez DPM Allergies As of Date: 10/27/2022 Noted Allergy Reaction AMOXICILLIN 08/04/2022 2 - Rash PENICILLINS 07/31/2022 2 - Rash Date Reviewed: 10/27/2022 Reviewed by: Mackenzie Hernandez DPM - Fully Assessed Reason for Visit: Follow Up [171] Fracture [4131] Primary Visit Diagnosis:Closed nondisplaced fracture of fifth metatarsal bone of left foot with routine healing, subsequent encounter [S94.511D] Order(s):XR FOOT GENERAL 3V AP/LAT/OBL LEFT [[id number]] Order #: [id number] Prescriptions as of 11/25/2022 - LO LOESTRIN FE 1 mg-10 mcg (24)/10 mcg (2) TAKE 1 TABLET BY MOUTH EVERY DAY FOR 28 DAYS Problem List As Of Date: 10/27/2022 (None) Disposition: Return if symptoms worsen or fail to improve. Follow-up and Disposition History for Encounter Date Provider Department Center 10/27/2022 [id number] HERNANDEZ AGHWG1 [facility] Encounter Status:Closed by MACKENZIE HERNANDEZ on 11/25/22 [facility] CNOVon 09-10-2022 CNOV Office Visit (AGPOB1 ) RAY BLANC ([id number]) 1990 F [place] Date Time Provider Department 09/10/22 8:15 AM MACKENZIE HERNANDEZ AGPOB1 During your visit today, we [...] Negative for excessive bleeding, clots, bleeding disorders. Mackenzie Hernandez DPM 09/10/2022 8:49 AM Signed PODIATRY [...] lesions noted. No hyperkeratotic tissue. Ecchymosis resolved. Musculoskeletal/Ortho paedic: General foot morphology: Rectus medial longitudinal arch [...] up in 6 weeks with repeat x-rays. Mackenzie Hernandez DPM Allergies As of Date: 09/10/2022 Noted Allergy Reaction AMOXICILLIN 08/04/2022 2 - Rash PENICILLINS 07/31/2022 2 - Rash Date Reviewed: 09/10/2022 Reviewed by: Mackenzie Hernandez DPM - Fully Assessed Reason for Visit: Follow Up [171] Primary Visit Diagnosis:Closed nondisplaced fracture of fifth metatarsal bone of left foot, initial encounter [S92.355A] Order(s):XR FOOT GENERAL 3V AP/LAT/OBL LEFT [[id number]] Order #: [id number] Prescriptions as of 09/10/2022 - LO LOESTRIN FE 1 mg-10 mcg (more content not included)... Normal [facility] Rabia 09-08-2022 CNPN Telephone (AGPOB1) RAY BLANC ([id number]) 1990 F [place] Date Time Provider Department 5/1/23 MACKENZIE HERNANDEZ During your visit today, we recorded the following information about you: Tangela Deutsch 09/08/2022 12:38 PM Signed ----- Message from Bel Daly sent at 09/08/2022 8:17 AM EDT ----- Regarding: Orthopedics/Figas/Lef t Foot Fracture appt Subject Line Format: Orthopedics / [Provider Name or Open AND Body Part ] / [Issue] Patient has been identified by name and Date of (Y/N): Y Patient: Ray Blanc Date of : 1990 Previous Provider [...] other than patient: pt Best contact number: [phone] Thank you, Bel Daly September 08, 2022 8:17 AM Tangela Deutsch 09/08/2022 12:38 PM Signed Spoke with patient and appointment was made Tangela Deutsch Allergies As of Date: 09/08/2022 Noted Allergy Reaction AMOXICILLIN 08/04/2022 2 - Rash PENICILLINS 07/31/2022 2 - Rash Date Reviewed: 08/04/2022 Reviewed by: Mackenzie Hernandez DPM - Fully Assessed Reason for Visit: Appointment [186] Prescriptions as of 09/08/2022 - LO LOESTRIN FE 1 mg-10 mcg (24)/10 mcg (2) TAKE 1 TABLET BY MOUTH EVERY DAY FOR 28 DAYS Problem List As Of Date: 09/08/2022 (None) Encounter Status:Closed by TANGELA HULL on 09/08/22 [facility] CNOVon 08-04-2022 CNOV Office Visit (AGHWG1 ) RAY BLANC ([id number]) 1990 F [place] Date Time Provider Department 08/04/22 3:00 PM MACKENZIE HERNANDEZ AGHWG1 During your visit today, we [...] hyperkeratotic tissue. Ecchymosis overlying the dorsolateral midfoot. Musculoskeletal/Ortho paedic: General foot morphology: Rectus medial longitudinal arch [...] resident's assessment and plan unless otherwise noted. Mackenzie Hernandez DPM Allergies As of Date: 08/04/2022 Noted Allergy Reaction AMOXICILLIN 08/04/2022 2 - Rash PENICILLINS 07/31/2022 2 - Rash Date Reviewed: 08/04/2022 Reviewed by: Mackenzie Hernandez DPM - Fully Assessed Reason for Visit: New [[id number]] Primary Visit Diagnosis (more content not included)... [facility] ALLIED HEALTHon 07-31-2022 ALLIED HEALTH HNO ID: [id number] Author: RT Bee(Mushtaq) Service: Radiology Author Type: Technologist Type: Allied Health Filed: 07/31/2022 8:43 AM Note Text: Radiology Service Progress Note PATIENT NAME: Ray Blanc DATE OF SERVICE: July 31, 2022 [...] RT Bee(R) July 31, 2022 8:37 AM [facility] Rabia 07-31-2022 DELROY Telephone (AGPOB1) RAY BLANC ([id number]) 1990 F [place] Date Time Provider Department [...] name and Date of (Y/N): Y Patient: Ray Blanc Date of : 1990 Previous Provider Seen: NA Body Part(s) Identified: Left Foot Diagnosis/Reason For Visit: Fracture Reason for the call/escalation: ER F/U If reason for call/escalation is discharge from ED/ER or Hospital, which facility was the patient seen at: [facility] Was an appointment scheduled (Y/N): n Person calling if other than patient: pt Return call to if other than patient: pt Best contact number: [phone] Thank you, Bel Daly July 31, 2022 10:24 AM Wendy Phillip 07/31/2022 1:49 PM Signed Vinicio Awad MD You 12 minutes ago (1:34 PM) Foot and ankle follow-up with Dr. Norwood/Dr. Hernandez/Dr. Jose Thanks, NJD You Vinicio Awad MD 34 minutes ago (1:12 PM) CR This patient was seen in the ED today. 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 Would you like to see this patient? Nu Corrigan Please schedule with one of your providers. Thanks, Nu [employer] [facility] 08/01/2022 9:02 AM Signed Mackenzie Hernandez DPM You 12 minutes ago (8:48 AM) Anytime next week or the following is fine You Mackenzie Heranndez DPM 18 hours ago (2:37 PM) AR How soon should this be seen Wendy Phillip You 19 hours ago (1:49 PM) CR Please schedule with one of your providers. Thanks, Nu Carter [place] [facility] 08/01/2022 9:02 AM Signed Called and left message for patient to call the office back to schedule an appointment Tangela Carter [place] [facility] Allergies As of Date: 07/31/2022 Noted Allergy Reaction PENICILLINS 07/31/2022 2 - Rash Date Reviewed: 07/31/2022 Reviewed by: Tisha Lala RN - Fully Assessed Reason for Visit: Appointment [186] Prescriptions as of 08/01/2022 - oxyCODONE-acetaminoph en (PERCOCET) 5-325 mg tablet Take 1 tablet by mouth every 6 hours as needed for pain for up to 3 days. Problem List As Of Date: 07/31/2022 (None) Encounter Status:Closed by WENDY PHILLIP on 07/31/22 [facility] ED PROV NOTEon 07-31-2022 ED PROV NOTE HNO ID: [id number] Author: Leonel Cooper DO Service: Emergency Medicine Author Type: Physician Type: ED Provider Notes Filed: 08/27/2022 2:14 AM Note Text: ED Provider Note Patient Name: Ray Blanc : 1990 SERVICE DATE: 07/31/22 History [...] asymmetry, speech difficulty, weakness, numbness and headaches. Psychiatric/Behaviora l: Negative. Negative for agitation, confusion, hallucinations and [...] / Clinical Impression Clinical Impressions as of 08/27/22211 Closed nondisplaced fracture of fifth metatarsal bone [...] stable SIGNATURE: DO ISHMAEL Kulkarni JUSTIN J 08/27/22213 Normal [facility] XR ANKLE 3V AP/LAT/OBL LTon 07-31-2022 [...] soft tissue abnormality. IMPRESSION: Fifth metatarsal fracture. Regional Clinical Director: PSCB Transcribe Date/Time: Jul 31 2022 8:51A Dictated by : KOMAL CUELLAR MD This examination was interpreted and the report reviewed and electronically signed by: KOMAL CUELLAR MD on Jul 31 2022 8:54AM EST [id number] Normal [facility] XR FOOT 3V AP/LAT/OBL LTon 0 [...] soft tissue abnormality. IMPRESSION: Fifth metatarsal fracture. Regional Clinical Director: ALESHIA Transcribe Date/Time: Jul 31 2022 8:51A Dictated by : KOMAL CUELLAR MD This examination was interpreted and the report reviewed and electronically signed by: KOMAL CUELLAR MD on Jul 31 2022 8:54AM EST [id number] Normal [facility] PAP ACOG PANEL 2: 30 to 65on 07-11-2022 . . Normal [facility] Comment on above: Result Comment: Perf ormed at: WB Performed By: #### [id number] #### [facility] [address] [place] [address] Dr. Morenita Hood Age Gdln ACOG Testing 30-65 Normal [facility] Comment on above: Performed By: #### [id number] #### [facility] [address] [address] [address] Morenita Hood DIAGNOSIS: Comment Abnormal [facility] Comment on above: Result Comment: EPIT HELIAL CELL ABNORMALITY. LOW GRADE SQUAMOUS INTRAEPITHELIAL LESION (LSIL). Performed at: WB Performed By: #### [id number] #### [facility] [address] [address] [address] Morenita Hood Electronically signed by: Comment Normal [facility] Comment on above: Result Comment: Maeve Chavez MD, Pathologist Performed at: WB Performed By: #### [id number] #### [facility] [address] [place] [address] Dr. Morenita Hood HPV Aptima Positive Abnormal Negative [facility] Comment on above: Result Comment: This nucleic acid amplification test detects fourteen high-risk HPV types (16,18,31,33,35,39,45,51,52,56,58,59,66,68) without differentiation. Performed at: =G Performed By: #### [id number] #### [facility] [address] [place] [address] Dr. Morenita Hood HPV Genotype Reflex Comment Normal [facility] Comment on above: Result Comment: Crit eria not met, HPV Genotype not performed. Performed at: WB Performed By: #### 4 [id number] #### [facility] [address] [place] [address] Dr. Morenita Hood Methodology: Comment Normal [facility] Comment on above: Result Comment: This liquid based ThinPrep(R) pap test was screened with the use of an image guided system. Performed at: WB Performed By: #### [id number] #### [facility] [address] [place] [address] Dr. Morenita Hood Note: Comment Normal [facility] Comment on above: Result Comment: The Pap smear is a screening test designed to aid in the detection of premalignant and malignant conditions of the uterine cervix. It is not a diagnostic procedure and should not be used as the sole means of detecting cervical cancer. Both false-positive and false-negative reports do occur. . Performed at: WB Performed By: #### [id number] #### [facility] [address] [place] [address] Dr. Morenita Hood Pathologist Provided ICD10 Comment Normal [facility] Comment on above: Result Comment: R87. 612 Performed at: WB Performed By: #### [id number] #### [facility] [address] [place] [address] Dr. Morenita Hood Performed by: Comment Normal [facility] Comment on above: Result Comment: Lorraine Bravo, Gun Stock Maker (ASCP) Performed at: WB Performed By: #### [id number] #### [facility] [address] [place], [place] [address] Dr. Morenita Hood Specimen adequacy: Comment Normal [facility] Comment on above: Result Comment: Sati sfactory for evaluation. Endocervical and/or squamous metaplastic cells (endocervical component) are present. Performed at: WB Performed By: #### [id number] #### [facility] [address] [address] [address] Morenita Hood No Panel Information [facility] Vital Signs Date Time Vital Sign Value Performing Clinician Faci lity 05-02-2024 10:10-0500 Body mass index (BMI) [Ratio] 26.59 kg/m2 Moi Jazlyn DO Work Phone: [facility] 05-02-2024 10:10-0500 Body weight 72.48 kg Moi Jazlyn DO Work Phone: [facility] 05-02-2024 10:10-0500 Diastolic blood pressure 60 mm[Hg] Moi Jazlyn DO Work Phone: [facility] 05-02-2024 10:10-0500 Systolic blood pressure 100 mm[Hg] Moi Jazlyn DO Work Phone: [facility] 01-04-2024 09:01-0400 Body height 165.1 cm Citlalli Lause PATCH WASHER Work Phone: [facility] 01-04-2024 09:01-0400 Body mass index (BMI) [Ratio] 25.96 kg/m2 Citlalli Lause PATCH WASHER Work Phone: [facility] 01-04-2024 09:01-0400 Body temperature 97.39 [degF] Citlalli Lause PATCH WASHER Work Phone: [facility] 01-04-2024 09:01-0400 Body weight 70.76 kg Citlalli Lause PATCH WASHER Work Phone: [facility] 01-04-2024 09:01-0400 Diastolic blood pressure 62 mm[Hg] Citlalli Lause PATCH WASHER Work Phone: [facility] 01-04-2024 09:01-0400 Heart rate 90 /min Citlalli Lause PATCH WASHER Work Phone: [facility] 01-04-2024 09:01-0400 Respiratory rate 18 /min Citlalli Lause PATCH WASHER Work Phone: [facility] 01-04-2024 09:01-0400 SaO2% (BldA) [Mass fraction] 100 % Citlalli Lause PATCH WASHER Work Phone: [facility] 01-04-2024 09:01-0400 Systolic blood pressure 108 mm[Hg] Citlalli Lause PATCH WASHER Work Phone: [facility] 10-27-2022 10:55-0400 Body height 165.1 cm Mackenzie Figas DPM Work Phone: [facility] 10-27-2022 10:55-0400 Body weight 74.84 kg Mackenzie Figas DPM Work Phone: [facility] 10-27-2022 10:55-0400 Respiratory rate 18 /min Mackenzie Figas DPM Work Phone: [facility] 09-10-2022 08:10-0400 Body height 165.1 cm Mackenzie Figas DPM Work Phone: [facility] 09-10-2022 08:10-0400 Body weight 74.84 kg Mackenzie Figas DPM Work Phone: [facility] 09-10-2022 08:10-0400 Respiratory rate 16 /min Mackenzie Figas DPM Work Phone: [facility] 08-04-2022 14:46-0400 Body height 166.4 cm Mackenzie Figas DPM Work Phone: [facility] 08-04-2022 14:46-0400 Body weight 74.84 kg Mackenzie Figas DPM Work Phone: [facility] 08-04-2022 14:46-0400 Respiratory rate 18 /min Mackenzie Figas DPM Work Phone: [facility] Hospital Encounters Encounter Date Encounter Type Care Provider Facility Start: 11-02-2024 End: 11-02-2024 Bamboo flowsheet Moi Jazlyn DO Work Phone: [facility] Start: 11-02-2024 End: 11-02-2024 Bamboo flowsheet Moi Jazlyn DO Work Phone: [facility] Start: 08-10-2024 End: 08-10-2024 ambulatory NONE PHYSICIAN Facility:A Start: 05-02-2024 End: 05-02-2024 Bamboo flowsheet Moi Jazlyn DO Work Phone: [facility] Start: 05-02-2024 End: 05-12-2024 Bamboo flowsheet Moi Jazlyn DO Work Phone: [facility] Start: 05-02-2024 End: 05-12-2024 Clinisync Result Encounter Moi Jazlyn DO Work Phone: [facility] External Department Unsolicited Start: 05-02-2024 End: 05-02-2024 ambulatory MOI JAZLYN Not Available Start: 05-02-2024 End: 05-02-2024 Office outpatient visit 10 minutes Moi Jazlyn DO Work Phone: [facility] Comment on above: LGSIL on Pap smear o f cervix; Encounter for repeat Papanicolaou smear of cervix; Encounter for control pills maintenance Start: 03-09-2024 End: 03-09-2024 Telephone encounter Annalee Laurent MA [facility] Start: 01-04-2024 End: 01-04-2024 Office outpatient visit 25 minutes Citlalli Ruvalcaba NP Work Phone: [facility] Comment on above: Anxiety (Primary Dx) ; Encounter for well adult exam without abnormal findings Start: 01-04-2024 End: 01-04-2024 Patient encounter status Citlalli Ruvalcaba NP Work Phone: [facility] Start: 01-04-2024 End: 01-04-2024 ambulatory CITLALLI R LAUSE Not Available Start: 10-30-2023 End: 10-30-2023 ambulatory NEAL Ramon Work Phone: [facility] Work Phone: Start: 10-30-2023 End: 10-30-2023 Departed Referred NEAL Ramon Work Phone: [facility] Start: 10-29-2023 End: 10-29-2023 ambulatory MOI JAZLYN Not Available Start: 10-07-2023 End: 10-07-2023 ambulatory CITLALLI R LAUSE Not Available Start: 09-16-2023 End: 09-16-2023 ambulatory CITLALLI R LAUSE Not Available Start: 09-14-2023 End: 09-14-2023 ambulatory RIO MEI Not Available Start: 08-27-2023 End: 08-27-2023 ambulatory CITLALLI R LAUSE Not Available Start: 10-27-2022 End: 10-27-2022 ambulatory MACKENZIE FIGNIKHIL [facility] Start: 10-27-2022 End: 10-27-2022 Patient encounter procedure Mackenzie Figas DPM Work Phone: [facility] Comment on above: Closed nondisplaced fracture of fifth metatarsal bone of left foot with routine healing, subsequent encounter (Primary Dx) Start: 09-10-2022 End: 09-10-2022 ambulatory MACKENZIE FIGAS [facility] Start: 09-10-2022 End: 09-10-2022 Patient encounter procedure Mackenzie Figas DPM Work Phone: [facility] Comment on above: Closed nondisplaced fracture of fifth metatarsal bone of left foot, initial encounter (Primary Dx) Start: 09-08-2022 Telephone encounter Mackenzie barlow DPM Work Phone: [facility] Comment on above: Appointment Start: 08-04-2022 End: 08-04-2022 ambulatory MACKENZIE FIGAS Facility:[facility] Start: 08-04-2022 End: 08-04-2022 Patient encounter procedure Mackenzie Hernandez DPM Work Phone: [facility] Comment on above: Closed nondisplaced fracture of fifth metatarsal bone of left foot, initial encounter (Primary Dx) Start: 07-31-2022 Telephone encounter [facility] Work Phone: [facility] Comment on above: Appointment Start: 07-31-2022 End: 07-31-2022 Emergency department patient visit LEONEL COOPER Facility:[facility] Start: 07-03-2022 End: 07-03-2022 ambulatory MOI OHBSON Facility:[facility] Start: 07-03-[address] EH Weston y:[facility] Start: 11-26-2021 End: 03-07-[address] DOCTOR MO Facility:[facility] Procedures Date Procedure Procedure Detail Performing Clinician Start: 05-02-2024 PAP IG, APT HPV RFX 16/18,45 Moi Jazlyn DO Work Phone: Start: 05-02-2024 Microscopic observat ion [Identifier] in Cervix by Cyto stain Moi Jazlyn DO Work Phone: Start: 09-14-2023 Microscopic observat ion [Identifier] in Cervix by Cyto stain Citlalli Ruvalcaba PATCH WASHER Work Phone: Start: 10-27-2022 Radex foot complete minimum 3 views Mackenzie Hernandez DPM Work Phone: Start: 09-10-2022 Radex foot complete minimum 3 views Mackenzie Hernandez DPM Work Phone: Plan of Treatment Date Care Activity Detail Author Start: 07-03-2027 Screening for malign ant neoplasm of cervix [facility] Start: 05-02-2027 Screening for malign ant neoplasm of cervix Pap Smear [facility] Start: 09-13-2026 Screening for malign ant neoplasm of cervix Pap Smear [facility] Start: 01-09-2025 Influenza vaccination Influenz a Vaccine (Season Ended) [facility] Start: 11-02-2024 End: 11-02-2024 Patient encounter procedure 11/02/2024 2:20 PM EDT Procedure Visit [facility] [address] [place] [id number] Moi Hobson, DO [address] [place] [address] Arrived [facility] Comment on above: Arrived Start: 10-24-2024 End: 10-24-2024 Patient encounter procedure 10/24/2024 1:00 PM EDT Procedure Visit [facility] [address] [place] [id number] Moi Hobson, DO [address] [place] [address] [facility] Start: 09-14-2024 End: 09-14-2024 Patient encounter procedure 09/14/2024 1:00 PM EDT [facility] [address] [place] [phone] Moi Hobson, DO [address] [place] [address] [facility] Start: 05-02-2024 End: 05-02-2024 Patient encounter procedure 05/02/2024 9:40 AM EST Procedure Visit [facility] [address] [place] [address] [place] [address] Moi Hobson, DO [address] [place] [address] [facility] Start: 01-10-2024 Influenza vaccination Influenza Vacc ine (#1) [facility] Start: 01-09-2023 Influenza vaccination [facility] Start: 05-11-2022 DEPRESSION ASSESSMENT DEPRESSION ASS ESSMENT [facility] Start: 01-09-2022 Influenza vaccination INFLUENZA (#1) [facility] Start: 2019 HPV TESTING HPV TESTING [facility] Start: 2010 PAP TESTING PAP TESTING [facility] Start: 12-04-2008 Urine microalbumin profile DTAP,TDAP,TD (1 - Tdap) [facility] Start: 2007 HEPATITIS C SCREENING HEPATITIS C SC SVEN [facility] Start: 2007 HIV SCREENING HIV SCREENING [facility] Start: 1989 COVID-19 VACCINE (#1) COVID-19 VACCI NE (#1) [facility] Start: 1989 HEPATITIS B (1 of 3 - 3-dose series) HEPATITIS B (1 of 3 - 3-dose series) [facility] Cytology Cervical or vaginal smear or scraping study Pap Smear Pathology and Cytology Routine LGSIL on Pap smear of cervix Ordered: 05/02/2024 [facility] Work Phone: Comment on above: Ordered: 05/02/2024 Human papilloma viru s DNA [Presence] in Unspecified specimen by Probe with amplification HPV DNA probe, amplified Microbiology Routine LGSIL on Pap smear of cervix Ordered: 05/02/2024 [facility] Comment on above: Ordered: 05/02/2024 [facility] Payers Date Payer Category Payer Medicaid [facility] [id number] 2024 Unknown [id number] 2021 [employer] [id number] 2021 Unknown [id number] 1989 Unknown [id number] [id number]. 2.593 1989 Unknown [id number] [id number]. 2.593 1989 Unknown [id number] 2.16.840.1.264742.3.579. 2.593 1989 Unknown [id number] 2.16.840.1.241644.3.579. 2.1259 1989 Unknown [id number] [id number]. 2.1259 1989 Unknown [id number] [id number]. 2.1259 1989 Unknown [id number] 2.16.840.1.820617.3.579. 2.1259 1989 Unknown [id number] 2.16.840.1.321255.3.579. 2.1259 1989 Unknown [id number] 2.16.840.1.265779.3.579. 2.1259 1989 Unknown [id number] 2.16.840.1.691696.3.579. 2.1259 1989 Unknown [id number] [id number]. 2.627 1959 Self-pay 1959 Unknown [id number] Unknown [id number]. 2.531 Social History Date Type Detail Facility Tobacco smoking stat us MSIS Tobacco smoking consumption unknown [facility] Start: 1989 Sex Assigned At Not on file [facility] Start: 08-04-2022 End: 12-31-2022 Tobacco smoking status MSIS Never smoked tobacco [facility] Start: 08-04-2022 End: 12-31-2022 Tobacco use and exposure Smokeless tobacco non-user [facility] Start: 08-04-2022 End: 10-27-2022 Alcohol intake Current drinker of alcohol (finding) [facility] Start: 08-04-2022 Alcohol Comment social [facility] Start: 10-27-2022 End: 12-31-2022 History of Social function [facility] Start: 10-27-2022 End: 12-31-2022 Tobacco use panel [facility] Start: 1990 Sex Assigned At Female [facility] Start: 01-04-2024 End: 05-02-2024 Alcoholic beverage intake Ex-drinker (finding) [facility] Active Member of [facility] bs or Organizations Not on file [facility] Do you feel stress - tense, restless, nervous, or anxious, or unable to sleep at night because your mind is troubled all the time - these days [OSQ] Very much [facility] Clinical Notes 07-31-2022 to 05-02-2024 Moi Hobson DO - 05/02/2024 9:40 AM ESTTelephone Encounter - Annalee Laurent MA - 03/09/2024 4:40 PM EDTTelephone Encounter - Annalee Laurent MA - 03/09/2024 4:40 PM EDT Note Date & Type Note Facility 05-02-2024 History of Presen t illness Narrative Reason for Appointment: Patient ID: Ray Blanc is a 34 y.o. female who [...] Nehemiah Milian Diabetes Maternal Grandmother Britney Milian Social History Tobacco Use Smoking status: Never Smokeless tobacco: Never Substance Use Topics Alcohol use: Not Currently Alcohol/week: 1.0 standard drink of alcohol Drug use: Never Past Surgical History: Procedure Laterality Date AR TONSILLECTOMY & ADENOIDECTOMY <AGE 11 as a [...] nursing note reviewed. Exam conducted with a pharmaceutical physician present. Vitals: Estimated body mass index is [...] months for an annual exam. Documented by Moi Hobson DO on behalf of: Moi Hobson DO documented in this encounter [facility] 03-09-2024 Telephone encounter Note Revised phone [...] get approved for this life insurance policy. [facility] 03-09-2024 Miscellaneous Notes Revised phone message [...] life insurance policy. documented in this encounter [facility] 01-04-2024 History of Presen t illness Narrative Family Medicine Note Subjective: Chief Complaint: Wellness, anxiety follow-up HPI: Ray Blanc presents to the office today for [...] for wellness . documented in this encounter [facility] 10-27-2022 Note HNO ID: [id number] Author: Mackenzie Hernandez DPM Service: ? Author Type: Physician [...] resident's assessment and plan unless otherwise noted. Mackenzie Hernandez DPM [facility] 10-27-2022 History of Presen t illness [...] States [facility] and has been performing more activity. [...] resident's assessment and plan unless otherwise noted. Mackenzie Hernandez DPM documented in this encounter [facility] 09-10-2022 Note HNO ID: [id number] Author: Mackenzie Hernandez DPM Service: ? Author Type: Physician [...] up in 6 weeks with repeat x-rays. Mackenzie Hernandez DPM [facility] 09-10-2022 Note HNO ID: [id number] Author: Bernardino Huang Service: ? Author Type: Thermal Cutter Helper Type: Progress Notes Filed: 09/10/2022 8:49 AM [...] Negative for excessive bleeding, clots, bleeding disorders. [facility] 09-10-2022 History of Presen t illness [...] up in 6 weeks with repeat x-rays. Mackenzie Hernandez DPM REVIEW OF SYSTEMS: GENERAL: Well [...] clots, bleeding disorders. documented in this encounter [facility] 09-08-2022 Miscellaneous Notes Spoke with patient and appointment was made Tangela Deutsch ----- Message from Bel Daly sent at 09/08/2022 8:17 AM EDT ----- Regarding: Orthopedics/Sunshine/Left Foot Fracture appt Subject Line Format: Orthopedics / [Provider Name or Open & Body Part ] / [Issue] Patient has been identified by name and Date of (Y/N): Y Patient: Ray Blanc Date of : 1990 Previous Provider [...] other than patient: pt Best contact number: [phone] Thank you, Bel Daly September 08, 2022 8:17 AM documented in this encounter [facility] 08-04-2022 Note HNO ID: [id number] Author: Mackenzie Hernandez DPM Service: ? Author Type: Physician [...] resident's assessment and plan unless otherwise noted. Mackenzie Hernandez DPM [facility] 08-04-2022 Note HNO ID: [id number] Author: Arelis Luna MA Service: ? Author Type: Regulatory Affairs Portfolio Leader Type: Progress Notes Filed: 08/04/2022 5:46 PM [...] bleeding, clots, bleeding disorders. Arelis Luna MA [facility] 08-04-2022 History of Presen t illness [...] resident's assessment and plan unless otherwise noted. Mackenzie Hernandez DPM REVIEW OF SYSTEMS: GENERAL: Well [...] Arelis Luna MA documented in this encounter [facility] 07-31-2022 Miscellaneous Notes Images from the original note were not included. Vinicio Awad MD You 12 minutes ago (1:34 PM) Foot and ankle follow-up with Dr. Norwood/Dr. Hernandez/Dr. Jose Thanks, NJD You Vniicio Awad MD 34 minutes ago (1:12 PM) CR This patient was seen in the ED today. 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 Would you like to see this patient? [...] name and Date of (Y/N): Y Patient: Ray Blanc Date of : 1990 Previous Provider Seen: NA Body Part(s) Identified: Left Foot Diagnosis/Reason For Visit: Fracture Reason for the call/escalation: ER F/U If reason for call/escalation is discharge from ED/ER or Hospital, which facility was the patient seen at: [facility] Was an appointment scheduled (Y/N): n Person calling if other than patient: pt Return call to if other than patient: pt Best contact number: [phone] Thank you, Bel Daly July 31, 2022 10:24 AM documented in this encounter [facility] Evaluation note Diagnosis Closed nondisplaced fracture of fifth metatarsal bone of left foot, initial encounter- Primary [facility] Closed nondisplaced fracture of fifth metatarsal bone of left foot, initial encounter- Primary [facility] Diagnosis Closed nondisplaced fracture of fifth metatarsal bone of left foot with routine healing, subsequent encounter- Primary [facility] noteNo assessment information [facility]St[facility] Work Phone: Evaluation note* Diagnosis Anxiety- Primary Anxiety state, unspecified Encounter for well adult exam without abnormal findings [facility] Diagnosis LGSIL on Pap smear of cervix Encounter for repeat Papanicolaou smear of cervix Encounter for control pills maintenance Surveillance of previously prescribed contraceptive pill documented in this encounter [facility] for [facility] (narrative)* Diagnostic Procedure Only (Routine) - Pending Review Specialty Diagnoses / Procedures Referred By Juli anderson Referred To Contact XR IMAGING Diagnoses Closed nondisplaced fracture of fifth metatarsal bone of left foot, initial encounter Procedures XR FOOT GENERAL 3V AP/LAT/OBL LEFT RADEX FOOT COMPLETE MINIMUM 3 VIEWS Mackenzie Hernandez DPM [address] [place] [address] Xr Imaging Referral ID Status Reason Start Date Expiration Date Visits Requested Visits Authorized [id number] Pending Review Auto-Generat ed Referral 09/10/2022 10/10/2023 1 1 [facility] (narrative)* Diagnostic Procedure Only (Routine) - Pending Review Specialty Diagnoses / Procedures Referred By Juli anderson Referred To Contact XR IMAGING Diagnoses Closed nondisplaced fracture of fifth metatarsal bone of left foot with routine healing, subsequent encounter Procedures XR FOOT GENERAL 3V AP/LAT/OBL LEFT RADEX FOOT COMPLETE MINIMUM 3 VIEWS Mackenzie Hernandez DPM [address] [place] [address] Xr Imaging Referral ID Status Reason Start Date Expiration Date Visits Requested Visits Authorized [id number] Pending Review Auto-Generat ed Referral 11/25/2022 12/25/2023 1 1 [facility] Summary Purpose Family History No Family History [...] or prosecute any alcohol or drug abuse patient.[facility] Hospital[facility] the event this information is protected by the Federal Confidentiality of Alcohol and Drug Abuse Patient Records regulations: The Federal rules restrict any use of the information to criminally investigate or prosecute any alcohol or drug abuse patient.[facility] Hospital[facility] the event this information is protected by the Federal Confidentiality of Alcohol and Drug Abuse Patient Records regulations: The Federal rules restrict any use of the information to criminally investigate or prosecute any alcohol or drug abuse patient.[facility] the event this information is protected by the Federal Confidentiality of Alcohol and Drug Abuse Patient Records regulations: The Federal rules restrict any use of the information to criminally investigate or prosecute any alcohol or drug abuse patient.[facility] Hospital[facility] the event this information is protected by the Federal Confidentiality of Alcohol and Drug Abuse Patient Records regulations: The Federal rules restrict any use of the information to criminally investigate or prosecute any alcohol or drug abuse patient.[facility] Reason for Visit (unrecogniz ed section and content) Reason Comments Appointment Reason Comments New Reason Comments Follow Up Reason Comments Follow Up Fracture Reason Comments Abnormal Pap Smear INFORMATION SOURCE (unrecogn ized section and content) DATE CREATED AUTHOR 08/06/2022 [facility] DATE CREATED AUTHOR AUTHOR'S ORGANIZ ATION 11/26/2022 [facility] dical Center DATE CREATED AUTHOR AUTHOR'S ORGANIZ ATION 11/04/[address] [facility] ys[facility] Group DATE CREATED AUTHOR AUTHOR'S ORGANIZ ATION 05/04/[address] [facility] dical Specialists EPIC DATE CREATED AUTHOR AUTHOR'S ORGANIZ ATION 09/19/2024 [facility] Care Teams (unrecognized sec tion and content) Team Status: Active Member Role Status Dates Bella Ramon APRN PATCH WASHER-C Primary Care Provider Activ e Team Status: Inactive Member Role Status Dates Bella Ramon APRN PATCH WASHER-C Primary Care Provider Activ e Start: October 30, 2023 End: October 30, 2023 Moi Hobson Attending Provider Active Start: 2023 End: October 30, 2023 Financial Reporting Accountant Relationship Specialty Start Date End Date Charlie Barnes MD [address] [place] [address] PCP - General Family Medicine 09/16/22 Citlalli Ruvalcaba NP [address] [place] [address] Nurse Practitioner Family Medicine 09/15/23 Financial Reporting Accountant Relationship Specialty Start Date End Date Charlie Barnes MD [address] [place] [address] PCP - General Family Medicine 09/16/22 Citlalli Ruvalcaba NP [address] [place] [address] Nurse Practitioner Family Medicine 09/15/23 Financial Reporting Accountant Relationship Specialty Start Date End Date Charlie Barnes MD [address] [place] [address] PCP - General Family Medicine 09/16/22 Citlalli Ruvalcaba, MARÍA ELENA [address] [place] [address] Nurse Practitioner Family Medicine 09/15/23 Financial Reporting Accountant Relationship Specialty Start Date End Date Charlie Barnes MD [address] [place] [address] PCP - General Family Medicine 09/16/22 Citlalli Ruvalcaba, PATCH WASHER [address] [place] [address] Nurse Practitioner Family Medicine 09/15/23 Financial Reporting Accountant Relationship Specialty Start Date End Date Charlie Barnes MD [address] [place] [address] PCP - General Family Medicine 09/16/22 Citlalli Ruvalcaba, MARÍA ELENA [address] [place] [address] Nurse Practitioner Family Medicine 09/15/23 Financial Reporting Accountant Relationship Specialty Start Date End Date Charlie Barnes MD [address] [place] [address] PCP - General Family Medicine 09/16/22 Citlalli Ruvalcaba NP [address] [place] [address] Nurse Practitioner Family Medicine 09/15/23 Goals (unrecognized [...] BE BASED ON THE PRIMARY CLINICAL RECORDS. [facility] provides no warranty or guarantee of the accuracy or completeness of information in this document.
[2024-11-08 10:11] LABS: Age Gdln ACOG Testing Note (.); HPV Aptima Positive (Negative); IGP, Aptima HPV, rfx 16/18,45 Note (.)
== END 2024-11-02 19:47 | disposition home or self-care (01) ==
LOC: LAB 19:46
PROVIDERS: Visit Provider Obstetrics & Gynecology
DX: R87.612 Low grade squamous intraepithelial lesion on cytologic smear of cervix (LGSIL) (principal)
CPT/HCPCS: 87624; 88175